=== PATIENT | female | born 1930 | race Caucasian/White ===

== ENCOUNTER 2017-03-23 17:27 | Emergency (ER) | payer MEDICARE, BC ==
[~2017-03-23] VITALS: Ht 170.2 cm; Wt 85.0 kg
[~2017-03-23 17:27] MED LIST: LEVO88TA3 PO
[2017-03-23 17:42] VITALS: Ht 170.2 cm; Wt 85.0 kg
[2017-03-23] MEDS ORDERED: ALBUTEROL 0.5% (NEB) 2.5 MG/0.5 ML AMP INH STA (17:52)
[2017-03-23] MEDS ORDERED: ONDANSETRON 4 MG INJ IV STA (17:52)
[2017-03-23] MEDS ORDERED: SOD CHLORIDE 0.9% 1,000 ML IV STA (17:52)
[2017-03-23] MEDS ORDERED: LEVO75TA5 PO (18:08)
[2017-03-23 18:27] LABS: ADD SCAN DIFF NO
[2017-03-23 18:34] LABS: HEMATOCRIT 45.2 % (37.0-47.0); HEMOGLOBIN 15.3 g/dl (12.0-16.0); MEAN CORPUSCULAR HEMOGLOBIN 32.1 pg (29.0-33.0); MEAN CORPUSCULAR HGB CONC 33.8 g/dl (32.0-37.0); MEAN CORPUSCULAR VOLUME 94.8 fl (82.0-101.0); MEAN PLATELET VOLUME 12.7 fl (7.4-10.4); PLATELET COUNT 165 10^3/UL (140-415); RED BLOOD COUNT 4.77 10^6/ul (4.20-5.40); WHITE BLOOD COUNT 10.7 10^3/ul (4.8-10.8)
--- NOTE | 2017-03-23 18:44 | RADRPT ---
PROCEDURE: CT abdomen and pelvis without contrast. Site of service: emergency room. CLINICAL INDICATION: Periumbilical abdominal pain TECHNIQUE: CT scan of the abdomen and pelvis without contrast was performed on the CT scanner. Th e patient was scanned without intravenous contrast. Oral contrast was not administered. 3-D post p rocessing coronal and sagittal re-formations were obtained from the axial source images. Exam D L P [address] D V O L 20 mgy. This exam is limited due to lack of intravenous contrast. One or more of the following dose reduction techniques were used: Automated exposure control Adjustment of the mA and/or kV according to patient size. Use of iterative reconstruction technique. COMPARISON: None FINDINGS: CT abdomen: Right lower lung field atelectasis is present. The heart size is normal, without pericardial thicke akosua or effusion. The liver is normal in size and density without focal mass or intrahepatic biliary dilatation. The spleen is normal in size and homogeneous in density. The stomach is partially collapsed, but is caitlin ssly unremarkable. The pancreas as visualized is normal. Multiple small gallstones are present within the gallbladder. There is no biliary dilatation. The adrenal glands are symmetric and normal. The kidneys are symmetrically unremarkable as well. N o renal calculus or obstructive uropathy or suspicious, mass lesion is seen. There is a benign, left renal cyst. The aorta is of normal caliber. There is no retroperitoneal lymphadenopathy. The evette hepatis fili on is clear. The bowel and mesentery, as visualized, are equally unremarkable. CT pelvis: The small bowel loops situated within the pelvis are unremarkable. The appendix is normal. The sig moid colon and rectum are all unremarkable. No mass, lymphadenopathy, or free fluid is seen. No ac gigi inflammation is seen. The uterus has been resected. The pelvic sidewalls and inguinal regions are clear. Severe degenerative disk disease is present. No osteolytic or osteoblastic lesion is detected. IMPRESSION: Right lower lobe atelectasis, cholelithiasis, status post hysterectomy, left renal cyst, and severe degenerative disk disease. No acute perforation, bowel obstruction, or acute inflammation. RPTAT: QQ .Gaby Westbrook MD, MD Date Time Electronically viewed and signed by .Gaby Westbrook MD, on 03/23/2017 18:44 .F/
--- NOTE | 2017-03-23 18:45 | ERA ---
ER Documentation Chief Complaint Date/Time DATE: 03/23/17 TIME: 18:44 Chief Complaint Dizzy, N/V HPI 86-year-old woman brought in by EMS from home for complaints of dizziness, 2-3 episodes of clear nonbloody nonbilious emesis beginning this afternoon. Patient states she has been suffering from a cold for the last 2-3 days and has had intermittent cough. She denies fevers or chills, no diarrhea, no blood per rectum or melena. Patient denies chest pain and denies calf or leg swelling. ROS All systems reviewed and are negative except as per history of present illness. Medications Home Meds Active Scripts Albuterol Sulfate* (Proair HFA*) 8.5 Gm Hfa.aer.ad, 2 PUFF INH Q6H Y for COUGH, #1 INHALER Prov:NICCI LARA MD 03/23/17 Ondansetron Hcl* (Zofran*) 4 Mg Tablet, 4 MG PO Q8H Y for NAUSEA AND/OR VOMITING , #16 TAB Prov:NICCI LARA MD 03/23/17 Reported Medications Levothyroxine Sodium* (Levothyroxine Sodium*) 75 Mcg Tablet, 75 MCG PO BEFORE BREAKFAST, #30 TAB 03/23/17 Discontinued Reported Medications Levothyroxine Sodium* (Levothyroxine Sodium*) 88 Mcg Tablet, 88 MCG PO DAILY, TAB 01/04/15 Allergies Allergies: Coded Allergies: prednisone (Verified Allergy, Unknown, 03/23/17) Uncoded Allergies: FLU VACCINE (Allergy, Unknown, 01/04/15) TAPE (Allergy, Unknown, 01/04/15) PMhx/Soc Bladder carcinoma, hypothyroidism, history of stroke, hypertension History of Surgery: Yes (Eye surgery 10/2014) Anesthesia Reaction: No Hx Neurological Disorder: Yes (CVA) Hx Respiratory Disorders: No Hx Cardiac Disorders: No Hx Psychiatric Problems: No Hx Miscellaneous Medical Probl: Yes (hypothyroid) Hx Alcohol Use: Yes Hx Substance Use: No Hx Tobacco Use: No Smoking Status: Never smoker FmHx Family History: No diabetes Physical Exam Vitals Vital Signs Date Time Temp Pulse Resp B/P Pulse Ox O2 Delivery O2 Flow Rate FiO2 03/23/17 23:05 98.6 60 19 133/79 99 Room Air 03/23/17 20:46 97.8 60 19 142/78 95 Room Air 03/23/17 18:04 55 19 95 21 03/23/17 17:42 97.8 64 18 146/84 92 03/23/17 17:42 60 19 146/84 93 Room Air Physical Exam GENERAL: Elderly, chronically debilitated woman, appears dehydrated, nontoxic in appearance HEENT: Dry mucous membranes, pink conjunctiva, no cervical spine tenderness or step-off deformities, no goiter, no jaundice or icterus, extraocular movements intact without pain. No submandibular induration, and no pharyngeal erythema NEURO: Alert and oriented 3, cranial nerves II through XII intact bilaterally, pupils equal round reactive to light, no focal deficits or facial asymmetry, sensation intact distally Strength 5/5 in upper and lower extremities bilaterally CARDIAC: Regular rate and rhythm, no murmurs rubs or gallops LUNGS: Clear bilaterally no wheezing crackles or stridor ABDOMEN: Soft nontender, no guarding, no rigidity, no rebound, no psoas sign no obturator sign. SKIN: Warm and dry to touch, no abrasions, contusions, or hematomas, no lacerations, no ecchymosis, no target lesions, and without ulcers EXTREMITIES: No clubbing cyanosis or edema, calves are bilaterally symmetrical, no Homans sign, no popliteal cord sign. Distal pulses equal and bilateral PSYCH: Normal affect without agitation or irritability Result Diagram: 03/23/17175403/23/17 175 Results 24 hrs Laboratory Tests Test 03/23/17 17:55 03/23/17 22:16 White Blood Count 10.710^3/ul Red Blood Count 4.7710^6/ul Hemoglobin 15.3g/dl Hematocrit 45.2% Mean Corpuscular Volume 94.8fl Mean Corpuscular Hemoglobin 32.1pg Mean Corpuscular Hemoglobin Concent 33.8g/dl Red Cell Distribution Width 13.0% Platelet Count 88483^3/UL Mean Platelet Volume 12.7fl Neutrophils % 52.0% Lymphocytes % 43.0% Monocytes % 5.0% Neutrophils # 5.610^3/ul Lymphocytes # 4.610^3/ul Monocytes # 0.510^3/ul Sodium Level 142mmol/L Potassium Level 3.7mmol/L Chloride Level 105mmol/L Carbon Dioxide Level 25mmol/L Anion Gap 16 Blood Urea Nitrogen 16mg/dl Creatinine 0.78mg/dl Glucose Level 127mg/dl Calcium Level 8.7mg/dl Total Bilirubin 0.5mg/dl Direct Bilirubin 0.00mg/dl Indirect Bilirubin 0.5mg/dl Aspartate Amino Transf (AST/SGOT) 18IU/L Alanine Aminotransferase (ALT/SGPT) 26IU/L Alkaline Phosphatase 107IU/L Troponin I < 0.012ng/ml Total Protein 6.7g/dl Albumin 3.7g/dl Globulin 3.00g/dl Albumin/Globulin Ratio 1.23 Lipase 94U/L Bedside Urine pH (LAB) 5.5 Bedside Urine Protein (LAB) Negative Bedside Urine Glucose (UA) Negative Bedside Urine Ketones (LAB) 1+ Bedside Urine Blood Trace-intact Bedside Urine Nitrite (LAB) Negative Bedside Urine Leukocyte Esterase (L Negative Current Medications Medications (Trade) Dose Ordered Sig/Eulogio Route PRN Reason Start Time Stop Time Status Last Admin Dose Admin Albuterol 5 mg 5 mg ONCE STAT INH 03/23/17 17:52 03/23/17 17:53 DC 03/23/17 18:03 Sodium Chloride (NS) 1,000 ml @ 2,000 mls/hr Q30M STAT IV 03/23/17 17:52 03/23/17 18:21 DC 03/23/17 18:04 Ondansetron HCl (Zofran Inj) 4 mg ONCE STAT IV 03/23/17 17:52 03/23/17 17:53 DC 03/23/17 18:04 Procedures/MDM IV line was established 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 Patient was afebrile. EKG performed, read by me revealed a normal sinus rhythm at 89 bpm, normal axis , narrow QRS complex, no concerning ST elevations or depressions noted. Chest X-ray 1V Interpreted by me: Soft Tissue: No acute abnormalities Bones: No acute abnormalities Mediastinum/Cardiac Silhouette/Lungs: No acute abnormalities CT scan of the abdomen and pelvis was performed no acute inflammatory infectious pathology was noted. Please refer to radiologist dictation for full report. CT scan of the brain was performed that was negative for bleed mass or shift. CBC was unremarkable, electrolytes were normal, liver function tests are normal , troponin was negative, urine analysis has also been ordered results are pending I will follow-up. For dehydration I treated the patient here with 2 L normal saline intravenously , she also received albuterol 5 mg via nebulizer, she also received Zofran 4 mg IV for nausea although she had no episodes of vomiting while here. CT scan of the brain was performed is negative for bleed mass or shift. Differential diagnoses considered, included but not limited to acute coronary syndrome, pulmonary embolism, aortic dissection, abdominal aortic aneurysm, sepsis, stroke, meningitis, encephalitis, pneumonia, appendicitis, cholecystitis , bowel obstruction, pyelonephritis, nephrolithiasis, cystitis, as well as metabolic, hematologic, and electrolyte abnormalities. As well as abscess, cellulitis, fractures, and dislocations. Patient feels much better at this time, and vital signs are normal, symptoms have improved. I did give strict instructions to return to the ED if symptoms continue or worsen, patient will otherwise follow-up with primary care physician. Patient understood instructions and agreed to plan. Departure Diagnosis: Primary Impression: Vomiting Qualified Code: R11.2 - Non-intractable vomiting with nausea, unspecified vomiting type Additional Impressions: Dehydration Bronchitis Condition: Good NICCI LARA MD March 23, 2017 18:45
[2017-03-23 18:51] LABS: ALBUMIN 3.7 g/dl (3.3-4.9); CHLORIDE 105 mmol/L (97-110)
[2017-03-23 18:52] LABS: POTASSIUM 3.7 mmol/L (3.5-5.1); SODIUM 142 mmol/L (135-144)
--- NOTE | 2017-03-23 18:53 | RADRPT ---
PROCEDURE: XR Chest. CLINICAL INDICATION: Chest pain TECHNIQUE: AP view of the chest was performed. COMPARISON: April 01, 2013 FINDINGS: The cardiomediastinal silhouette is within normal limits. The lungs are clear. No signs of pleural f luid or pneumothorax are seen. The osseous structures and soft tissues are unremarkable. IMPRESSION: No evidence for active cardiopulmonary disease. RPTAT: QQ .Gaby Westbrook MD, MD Date Time Electronically viewed and signed by .Gaby Westbrook MD, on 03/23/2017 18:53 .F/
[2017-03-23 18:54] LABS: ALBUMIN/GLOBULIN RATIO 1.23; ANION GAP 16 (8-16); ASPARTATE AMINO TRANSFERASE 18 IU/L (15-46); BILIRUBIN,INDIRECT 0.5 mg/dl (0-1.1); BILIRUBIN,TOTAL 0.5 mg/dl (0.2-1.3); CARBON DIOXIDE 25 mmol/L (21-31); CREATININE 0.78 mg/dl (0.44-1.00); TOTAL PROTEIN 6.7 g/dl (6.1-8.1)
[2017-03-23 18:55] LABS: ALANINE AMINOTRANSFERASE 26 IU/L (13-69); ALKALINE PHOSPHATASE 107 IU/L (42-121); BLOOD UREA NITROGEN 16 mg/dl (7-20); CALCIUM 8.7 mg/dl (8.4-10.2); GLUCOSE 127 mg/dl (70-220)
[2017-03-23 19:08] LABS: LYMPHOCYTES # 4.6 10^3/ul (0.8-2.9); MONOCYTE # 0.5 10^3/ul (0.3-0.9); NEUTROPHIL # 5.6 10^3/ul (1.6-7.5)
[2017-03-23 19:11] LABS: TROPONIN-I < 0.012 ng/ml (0.00-0.12)
[2017-03-23] MEDS ORDERED: ONDA4TAB8 PO (20:07)
[2017-03-23] MEDS ORDERED: ALBU8.5H3 INH (20:10)
--- NOTE | 2017-03-23 21:08 | RADRPT ---
PROCEDURE: CT Brain without. CLINICAL INDICATION: Pain. TECHNIQUE: A CT of the brain was performed on multidetector high-resolution CT scanner utilizing a xial sections from the skull base through the vertex without contrast. The scan was reviewed in sof t tissue brain and high frequency resolution bone algorithm windows. Images were reviewed on a high -resolution PACS workstation. One or more the following does reduction techniques were utilized: Aut omated exposure control, adjustment of the mA/ or kV according to patient's size, or use of iterativ e reconstruction technique. The exam CTDI = 45 mGy and the DLP = 720.23 mGy-cm. COMPARISON: None available. FINDINGS: The ventricles and sulci are mildly prominent indicative of volume loss. There is no intracranial he morrhage, mass effect or midline shift. No abnormal intra-axial or extra-axial fluid collections ar e seen. The sanderson/white matter differentiation is preserved. There are mild scattered foci of hypoattenuation in the white matter, which are nonspecific in etiol ogy but likely reflect chronic small vessel ischemic changes. There are mild intracranial vascular calcifications consistent with atherosclerosis. The visualized paranasal sinuses are essentially emi ar. IMPRESSION: 1. No acute intracranial hemorrhage, transcortical infarction or mass effect. 2. Mild intracranial atherosclerosis and chronic small vessel ischemic changes. 3. Mild generalized cerebral volume loss. RPTAT: HFN .Arleth Hale MD, MD Date Time Electronically viewed and signed by .Arleth Hale MD, MD on 03/23/2017 21:08 .N/
[2017-03-23 22:15] LABS: URINE BLOOD (Dip) POC Trace-intact (NEGATIVE)
[2017-03-23 23:05] VITALS: BP 133/79; PULSE 60; RESP 19; TEMP 98.6
== END 2017-03-23 23:06 | disposition home or self-care (01) ==
LOC: E/R 17:27
DX: R11.2 Nausea with vomiting, unspecified (principal); R40.2252 Coma scale, best verbal response, oriented, at arrival to emergency department; E86.0 Dehydration; J40 Bronchitis, not specified as acute or chronic; I10 Essential (primary) hypertension; E03.9 Hypothyroidism, unspecified; R05 Cough; R11.10 Vomiting, unspecified; R40.2142 Coma scale, eyes open, spontaneous, at arrival to emergency department; R40.2362 Coma scale, best motor response, obeys commands, at arrival to emergency department; Z85.51 Personal history of malignant neoplasm of bladder
CPT/HCPCS: 36415; 70450; 71010; 74176; 80053; 83690; 84484; 85025; 93005; 94664; 96374; 99285; J2405; J7030; 81003

== ENCOUNTER 2019-01-03 12:42 | Inpatient (IN) | payer MEDICARE, BC ==
[2019-01-02 23:25] VITALS: PULSE 46
[~2019-01-03] VITALS: Ht 165.1 cm; Wt 63.0 kg
[~2019-01-03 12:42] MED LIST changes: +ALBU8.5H8 INH; +LEVO75TA5 PO; -LEVO88TA3 PO; +ONDA4TAB8 PO
--- NOTE | 2019-01-03 13:56 | ERD ---
ER Documentation Chief Complaint Chief Complaint bib ra from home for syncope episode, no fall, no head impact HPI 88-year-old female presents by paramedics after a fall. Patient is a poor historian providing limited insight. I have also spoken her . Patient was in her usual state of health until just prior to arrival which time she passed out. She had no specific symptoms prior to passing out including no chest pain or palpitations, no headache focal weakness or seizure activity. According to the paramedics and the , she passed out, hit the back of her head and hurt her left shoulder as well as questionable her hip. 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 Pre-hospital vital signs were reviewed. Pre-hospital diagnostic tests were reviewed. Upon arrival, patient is unable to provide any further history. Patient describes no details or any symptoms prior to the fall and describes no specific traumatic complaints at this time. ROS All systems reviewed and are negative except as per history of present illness. Medications Home Meds Active Scripts Albuterol Sulfate* (Proair HFA*) 8.5 Gm Hfa.aer.ad, 2 PUFF INH Q6H PRN for COUGH, #1 INHALER Prov:NICCI LARA MD 03/23/17 Ondansetron Hcl* (Zofran*) 4 Mg Tablet, 4 MG PO Q8H PRN for NAUSEA AND/OR VOMITING, #16 TAB Prov:NICCI LARA MD 03/23/17 Reported Medications Levothyroxine Sodium* (Levothyroxine Sodium*) 75 Mcg Tablet, 75 MCG PO BEFORE BREAKFAST, #30 TAB 03/23/17 Allergies Allergies: Coded Allergies: prednisone (Verified Allergy, Unknown, 03/23/17) Uncoded Allergies: FLU VACCINE (Allergy, Unknown, 01/04/15) TAPE (Allergy, Unknown, 01/04/15) PMhx/Soc History of Surgery: Yes (Eye surgery 10/2014) Anesthesia Reaction: No Hx Neurological Disorder: Yes (CVA) Hx Respiratory Disorders: No Hx Cardiac Disorders: No Hx Psychiatric Problems: No Hx Miscellaneous Medical Probl: Yes (hypothyroid) Hx Alcohol Use: Yes Hx Substance Use: No Hx Tobacco Use: No Smoking Status: Never smoker FmHx Lives with frail elderly Physical Exam Vitals Vital Signs Date Temp Pulse Resp B/P (MAP) Pulse Ox O2 O2 Flow FiO2 Time Delivery Rate 01/03/19 98.1 71 19 147/65 98 Room Air 12:45 (92) 01/03/19 98.1 57 19 147/65 98 12:45 (92) Physical Exam General: Frail, elderly female. HEENT: Scalp atraumatic with no laceration or evidence of skull fracture; no signs of basilar skull fracture. Face symmetric, stable and atraumatic Neck: Full range of motion without discomfort or neurologic symptoms, no midline cervical spine tenderness, step-off, or evidence of significant trauma CV: Regular rate, rhythm, no murmurs appreciated Lungs: Clear to auscultation bilaterally with no chest wall trauma appreciated, chest wall stable with no crepitus Abdomen: Soft, atraumatic and non-tender in all 4 quadrants Extremities: Atraumatic with no bony tenderness or deformity in all 4 extremities, full range of motion throughout all joints; pelvis stable to both AP and lateral compression Back: No thoracic or lumbar midline tenderness, no step-off or evidence of significant trauma Neurologic: Awake, alert and oriented, pupils equal, round and reactive to light, face symmetric, tongue midline, moving all extremities with equal and normal strength, sensory exam grossly non-focal Skin: No specific laceration or bruising noted Result Diagram: 01/03/19 1340 01/03/19 1340 Results 24 hrs Laboratory Tests Test 01/03/19 12:56 01/03/19 13:23 01/03/19 13:40 Urine Color YELLOW Urine Clarity CLEAR Urine pH 6.0 Urine Specific [place] 1.016 Urine Ketones NEGATIVE mg/dL Urine Nitrite NEGATIVE mg/dL Urine Bilirubin NEGATIVE mg/dL Urine Urobilinogen NEGATIVE mg/dL Urine Leukocyte Esterase NEGATIVE Jeannie/ul Urine Hemoglobin NEGATIVE mg/dL Urine Glucose NEGATIVE mg/dL Urine Total Protein NEGATIVE mg/dl Bedside Glucose 113 mg/dL White Blood Count 6.1 10^3/ul Red Blood Count 4.18 10^6/ul Hemoglobin 13.4 g/dl Hematocrit 40.8 % Mean Corpuscular Volume 97.6 fl Mean Corpuscular Hemoglobin 32.1 pg Mean Corpuscular 32.8 g/dl Hemoglobin Concent Red Cell Distribution Width 13.0 % Platelet Count 130 10^3/UL Mean Platelet Volume 11.8 fl Immature Granulocytes % 0.300 % Neutrophils % 77.0 % Lymphocytes % 16.6 % Monocytes % 4.8 % Eosinophils % 1.0 % Basophils % 0.3 % Nucleated Red Blood Cells % 0.0 /100WBC Immature Granulocytes # 0.020 10^3/ul Neutrophils # 4.7 10^3/ul Lymphocytes # 1.0 10^3/ul Monocytes # 0.3 10^3/ul Eosinophils # 0.1 10^3/ul Basophils # 0.0 10^3/ul Nucleated Red Blood Cells # 0.0 10^3/ul Prothrombin Time 12.6 Sec Prothrombin Time Ratio 1.0 INR International 0.93 Normalized Ratio Activated Partial Thromboplast 20.0 Sec Time Sodium Level 142 mmol/L Potassium Level 3.8 mmol/L Chloride Level 106 mmol/L Carbon Dioxide Level 31 mmol/L Anion Gap 5 Blood Urea Nitrogen 19 mg/dl Creatinine 0.78 mg/dl Est Glomerular Filtrat mL/min Rate mL/min Glucose Level 117 mg/dl Calcium Level 9.2 mg/dl Troponin I Pending Procedures/MDM Patient was taken to a room, seen and evaluated. Comfort measures were initiated. Diagnostic tests were ordered and reviewed. 3 LEAD RHYTHM STRIP: Normal sinus rhythm without ectopy EK lead EKG reviewed by myself: Normal Sinus Rhythm Normal Vermilion and intervals Nonspecific ST and T wave changes without ST elevation Impression: Nonspecific EKG RADIOLOGY: Reviewed with the radiologist CONSULTATION: Hospitalist was notified for admission REEVALUATION: Patient remains him dynamically stable and comfortable having received pain medication from the paramedics MEDICAL DECISION MAKING: Patient presents after a fall. From a trauma standpoint, patient has been evaluated for significant injury. Initial x-rays demonstrate no signs of significant fracture and patient has no clinical evidence of significant thoracic, abdominal, neurologic or orthopedic trauma From a medical standpoint, the fall seems to be related to a geriatric syndrome with multiple causes. I have reviewed medications and evaluated the patient for infection, electrolyte concerns, ischemia and other acute medical concerns. Patient has no definitive cause for her syncope, but is clearly frail and as per my conversations with the has had multiple falls previously. Patient will require further observation for cardiogenic concerns regarding her syncope From a social standpoint, the patient has been evaluated for safety. Patient is unable to ambulate and unable to care for herself and with her elderly does not have a safe discharge. Patient seems to be requiring inpatient care for supportive measures. Departure Diagnosis: Primary Impression: Syncope Condition: JANESSA Martin Jan 03, 2019 13:56
--- NOTE | 2019-01-03 14:47 | HP ---
Date/Time of Note Date/Time of Note DATE: 01/03/19 TIME: 14:47 Assessment/Plan VTE Prophylaxis Pharmacological prophylaxis: LMWH Lines/Catheters IV C[facility]ter Type (from [facility] Saline Lock Urinary Cath still in place: No Assessment/Plan Hospital Course 88-year-old female with comorbidities including hypothyroidism, osteoporosis, a nd remote history of ovarian and bladder cancer who had a syncopal episode at home and was brought to the emergency room. The patient will be admitted to inpatient setting for further treatment and evaluation. 1. Syncope. -Etiology unclear. -Brain CT negative. -Obtain carotid Dopplers. -Obtain orthostatic vital signs. -Obtain neurology consult. -Obtain serial troponins to evaluate for any underlying ACS. Obtain 2D echocardiogram with bubble study. -Start as needed meclizine. -Physical therapy evaluation. -Start aspirin for any underlying acute ischemic event. 2. Hypothyroidism. -Resume Synthroid. -Obtain thyroid panel. 3. Bradycardia with underlying frequent PACs. -Possible underlying atrial fibrillation. -Obtain cardiology evaluation. -Avoid AV elizabeth blocking agents. Plan: The patient will be admitted to inpatient telemetry floor. The patient will be started on a regular diet. The patient will be started on DVT prophylaxis. The patient will remain a full code. Activities will be with assist. The rest of the patient's management will be based on the clinical course, inputs from consultants, and the results of diagnostic studies. Based on the patient's clinical presentation, she most probably requires at least 2 midnights' stay for further management and evaluation of her clinical presentation. The patient was seen in collaboration with Dr. Figueroa. Result Diagram: 01/03/19 1340 01/03/19 1340 Results 24hrs Laboratory Tests Test 01/03/19 12:56 01/03/19 13:23 01/03/19 13:40 Urine Color YELLOW Urine Clarity CLEAR Urine pH 6.0 Urine Specific [place] 1.016 Urine Ketones NEGATIVE Urine Nitrite NEGATIVE Urine Bilirubin NEGATIVE Urine Urobilinogen NEGATIVE Urine Leukocyte Esterase NEGATIVE Urine Hemoglobin NEGATIVE Urine Glucose NEGATIVE Urine Total Protein NEGATIVE Bedside Glucose 113 White Blood Count 6.1 # Red Blood Count 4.18 L Hemoglobin 13.4 Hematocrit 40.8 Mean Corpuscular Volume 97.6 Mean Corpuscular Hemoglobin 32.1 Mean Corpuscular Hemoglobin Concent 32.8 Red Cell Distribution Width 13.0 Platelet Count 130 #L Mean Platelet Volume 11.8 H Immature Granulocytes % 0.300 Neutrophils % 77.0 Lymphocytes % 16.6 Monocytes % 4.8 Eosinophils % 1.0 Basophils % 0.3 Nucleated Red Blood Cells % 0.0 Immature Granulocytes # 0.020 Neutrophils # 4.7 Lymphocytes # 1.0 Monocytes # 0.3 Eosinophils # 0.1 Basophils # 0.0 Nucleated Red Blood Cells # 0.0 Prothrombin Time 12.6 Prothrombin Time Ratio 1.0 INR International Normalized Ratio 0.93 Activated Partial Thromboplast Time 20.0 L Sodium Level 142 Potassium Level 3.8 Chloride Level 106 Carbon Dioxide Level 31 Anion Gap 5 Blood Urea Nitrogen 19 Creatinine 0.78 Est Glomerular Filtrat Rate mL/min Glucose Level 117 Calcium Level 9.2 Troponin I < 0.012 HPI/ROS Admit Date/Time Admit Date/Time Hx of Present Illness Reason for admission: Syncope Consultants 1. Zhanna Parks MD, Neurology. 2. Gabriele Avendano MD, Cardiology. This is an 88-year-old female patient with past medical history of hypothyroidism, and remote history of ovarian and bladder cancer status post surgical resection. The patient verbalized that she was sitting in a chair and reading a magazine. Suddenly she felt dizziness and the entire room spinning. Therefore, she tried to get up and walk to the bed. Meanwhile, the entire room was spinning and she fell on the floor with impact to the left shoulder and back of the head. The patient also verbalized that she felt nauseous and had vomiting. The patient denied any urinary or stool incontinence. The patient screamed for help. However, the patient's spouse who is crippled could not hear her. Therefore, she crawled to the door and screamed through the keyhole. The patient's heard it and he called the neighbors to come and help her. Paramedics were called and the patient was brought to the emergency room. The patient verbalized that after she fell down, she had significant left shoulder pain and headache. The patient was also complaining of severe body aches. She was also complaining of palpitations. She was also complaining of chest pain. In the emergency room, the patient underwent a brain CT scan that was negative f or any acute findings. The patient also underwent a left shoulder x-ray that was negative for any fractures. Patient's the pelvic x-ray was also negative for any acute fractures. The patient's troponins were negative. The patient's 12-lead EKG was showing significant sinus arrhythmia. ROS Constitutional: nausea Eyes: no complaints ENT: no complaints Respiratory: no complaints Cardiovascular: chest pain, palpitations Gastrointestinal: nausea, vomiting Genitourinary: no complaints Musculoskeletal: back pain, bone/joint pain (Left shoulder) Skin: no complaints Neurologic: syncope, other (vertigo) Endocrine: no complaints Lymphatic: no complaints Psychological: no complaints Immunologic: no complaints PMH/Family/Social Past Medical History 1. Hypothyroidism. 2. Ovarian cancer. 3. Bladder cancer. Coded Allergies: prednisone (Verified Allergy, Unknown, 01/03/19) Uncoded Allergies: FLU VACCINE (Allergy, Unknown, 01/04/15) TAPE (Allergy, Unknown, 01/04/15) Past Surgical History 1. Surgery for ovarian cancer. 2. Surgery for bladder cancer. Social History The patient lives at home with her spouse. Smoking Status: Never smoker Exam/Review of Systems Vital Signs Vitals Vital Signs Date Temp Pulse Resp B/P (MAP) Pulse Ox O2 O2 Flow FiO2 Time Delivery Rate 01/03/19 98.1 71 19 147/65 98 Room Air 12:45 (92) Exam Exam General: Adequately build 88 year-old female lying in bed in no apparent distress. HEENT: Normocephalic, atraumatic. Eyes: Anicteric sclerae, conjunctivae clear. ENT: Nasal septum midline, oral mucosa is dry. Neck supple. Respiratory: Bilaterally diminished breath sounds. No use of accessory muscles of respiration. No adventitious breath sounds. Cardiovascular: S1, S2 heard. Irregular. Abdomen: Soft, nontender, and nondistended. Bowel sounds positive in all 4 quadrants. Genitourinary: Deferred. Extremities: No cyanosis, no clubbing. B/L LE 2+ pitting edema. Peripheral pulses palpable. Neurologic: The patient is awake, alert, and oriented. Hard of hearing. LUE weaker than the right side. Additional Comments Brain CT IMPRESSION: 1. No evidence of acute intracranial pathology. 2. Age appropriate diffuse cerebral volume loss. 3. Periventricular white matter hypodensities are nonspecific but likely reflect chronic microvascular ischemic change. 12 Lead EKG NENA EDWARDS NP Jan 03, 2019 14:47
[2019-01-03] MEDS ORDERED: ONDANSETRON 4 MG INJ IV PRN (15:00)
[2019-01-03] MEDS ORDERED: ACETAMINOPHEN 325 MG TAB PO PRN (15:00)
[2019-01-03] MEDS ORDERED: NACL 0.9% 3 ML SYG IV SCH (15:00)
[2019-01-03] MEDS ORDERED: MECLIZINE 12.5 MG TAB PO PRN (15:00)
[2019-01-03 17:30] VITALS: PULSE 68
[2019-01-03 17:32] VITALS: BP 154/69; PULSE 58; RESP 18
[2019-01-03 20:00] VITALS: PULSE 65
[2019-01-03 20:22] VITALS: BP 118/54; PULSE 54; RESP 18
[2019-01-04] VITALS (12 sets, daily range): BP systolic 95–135; BP diastolic 51–66; PULSE 54–78; RESP 17–19
[2019-01-04] MEDS ORDERED: traZODone 50 MG TAB PO ONE
[2019-01-04] MEDS: LEVOTHYROXINE 75 MCG TAB PO SCH (07:16)
[2019-01-04] MEDS: ASPIRIN (EC) 81 MG TAB PO SCH (10:02)
[2019-01-04] MEDS: ENOXAPARIN 30 MG/0.3 ML SYG SC SCH (10:07)
--- NOTE | 2019-01-04 12:45 | CONS ---
Assessment/Plan Assessment/Plan Hospital Course (Demo Recall) ?Syncope: Unclear as pt is a poor historian. There is a question of vertigo but also symptoms may be orthostatic related by history. Echo shows normal EF and valved. Tele with isolated PAC/PVCs and at times sinus bradycardia which do not explain the episode PAC/PVCs: isolated and no symptoms. Normal EF. No BB/CCB with baseline mild bradycardia at times Hypothyroidism -neuro f/u -orthostatic precautions -monitor on tele one more day -terminal supervisor event monitor as outpt is an option if trule recurrent episodes Consultation Date/Type/Reason Admit Date/Time Date of Consultation: Jan 04, 2019 Type of Consult Cardiology Reason for Consultation Syncope Requesting Provider: NENA EDWARDS NP Date/Time of Note DATE: 01/04/19 TIME: 12:45 Hx of Present Illness 88 yo F with a h/o ?dementia, hypothyroidism, who presented with possible syncope. The pt is a very poor historian and notes that she was sitting down reading a magazine when she started to notice the print was blurry. She tried to get up and felt dizzy but she is not sure if it was vertigo like or light headedness. She became unsteady and "fell". At one point she said she lost consciousness and at other times she said she lost her balance. This has happened in the past but she is not able to give me more details. Tele shows PACs and PVCs. No pauses, heart block, NSVT. Echo shows normal EF and valves. per HPI but limited Past Medical History per HPI Home Meds Reported Medications Levothyroxine Sodium* (Levothyroxine Sodium*) 75 Mcg Tablet, 75 MCG PO BEFORE BREAKFAST, #30 TAB 03/23/17 Discontinued Scripts Albuterol Sulfate* (Proair HFA*) 8.5 Gm Hfa.aer.ad, 2 PUFF INH Q6H PRN for COUGH, #1 INHALER Prov:NICCI LARA MD 03/23/17 Ondansetron Hcl* (Zofran*) 4 Mg Tablet, 4 MG PO Q8H PRN for NAUSEA AND/OR VOMITING, #16 TAB Prov:NICCI LARA MD 03/23/17 Medications Current Medications IV Flush (NS 3 ml) 3 ml PER PROTOCOL IV ; Start 01/03/19 at 15:00 Ondansetron HCl (Zofran Inj) 4 mg Q6H PRN IV NAUSEA/VOMITING; Start 01/03/19 at 15:00 Acetaminophen (Tylenol Tab) 650 mg Q6H PRN PO .PAIN 1-3 OR TEMP; Start 01/03/19 at 15:00 Acetaminophen/ Hydrocodone Bitart ([place] (5/325)) 1 tab Q6H PRN PO .PAIN 4-6; Start 01/03/19 at 15:00 Enoxaparin Sodium (Lovenox) 30 mg DAILY SC Last administered on 01/04/19at 10:07; Admin Dose 30 MG; Start 01/04/19 at 09:00 Levothyroxine Sodium (Synthroid) 75 mcg BEFORE BREAKFAST PO Last administered on 01/04/19at 07:16; Admin Dose 75 MCG; Start 01/04/19 at 07:00 Aspirin (Halfprin) 81 mg DAILY PO Last administered on 01/04/19at 10:02; Admin Dose 81 MG; Start 01/04/19 at 09:00 Meclizine HCl (Antivert) 12.5 mg TID PRN PO Vertigo; Start 01/03/19 at 15:00 Allergies: Coded Allergies: prednisone (Verified Allergy, Unknown, 01/03/19) Uncoded Allergies: FLU VACCINE (Allergy, Unknown, 01/04/15) TAPE (Allergy, Unknown, 01/04/15) Social History Smoking Status: Never smoker Exam/Review of Systems Exam Vitals Vital Signs Date Temp Pulse Resp B/P (MAP) Pulse Ox O2 O2 Flow FiO2 Time Delivery Rate 01/04/19 98.7 64 18 100/53 95 11:41 (69) 01/03/19 Room Air 16:06 Intake and Output 01/03/19 01/03/19 01/04/19 1515:00 23:00 07:00 OutputOutput Total 1100 ml BalanceBalance -1100 ml Constitutional: alert, oriented Psych: no complaints, nl mood/affect Head: normocephalic, atraumatic Neck: No jvd Respiratory: clear to auscultation; No crackles/rales Cardiovascular: regular rate and rhythm, systolic murmur (2/6 BRITT); No edema Gastrointestinal: soft, non-tender; No distended Musculoskeletal: nl extremities to inspection Neurological: nl mental status, nl speech Results Result Diagram: 01/04/19 0520 01/04/19 0520 Results 24hrs Laboratory Tests Test 01/03/19 12:56 01/03/19 13:23 01/03/19 13:40 01/03/19 18:38 Urine Color YELLOW Urine Clarity CLEAR Urine pH 6.0 Urine Specific 1.016 [place] Urine Ketones NEGATIVE Urine Nitrite NEGATIVE Urine Bilirubin NEGATIVE Urine Urobilinogen NEGATIVE Urine Leukocyte NEGATIVE Esterase Urine Hemoglobin NEGATIVE Urine Glucose NEGATIVE Urine Total Protein NEGATIVE Bedside Glucose 113 White Blood Count 6.1 # Red Blood Count 4.18 L Hemoglobin 13.4 Hematocrit 40.8 Mean Corpuscular 97.6 Volume Mean Corpuscular 32.1 Hemoglobin Mean Corpuscular 32.8 Hemoglobin Concent Red Cell 13.0 Distribution Width Platelet Count 130 #L Mean Platelet Volume 11.8 H Immature 0.300 Granulocytes % Neutrophils % 77.0 Lymphocytes % 16.6 Monocytes % 4.8 Eosinophils % 1.0 Basophils % 0.3 Nucleated Red Blood 0.0 Cells % Immature 0.020 Granulocytes # Neutrophils # 4.7 Lymphocytes # 1.0 Monocytes # 0.3 Eosinophils # 0.1 Basophils # 0.0 Nucleated Red Blood 0.0 Cells # Prothrombin Time 12.6 Prothrombin Time 1.0 Ratio INR International 0.93 Normalized Ratio Activated 20.0 L Partial Thromboplast Time Sodium Level 142 Potassium Level 3.8 Chloride Level 106 Carbon Dioxide Level 31 Anion Gap 5 Blood Urea Nitrogen 19 Creatinine 0.78 Est Glomerular Filtrat Rate mL/min Glucose Level 117 Calcium Level 9.2 Troponin I < 0.012 0.029 Thyroid Stimulating 3.900 Hormone (TSH) Free Thyroxine 1.30 Urine Opiates Screen Negative Urine Barbiturates Negative Urine Amphetamines Negative Screen Urine Negative Benzodiazepines Screen Urine Cocaine Screen Negative Urine Cannabinoids Negative Creatine Kinase 82 Creatine Kinase 1.3 Index Creatinine Kinase MB 1.06 (Mass) Test 01/04/19 00:24 01/04/19 05:20 Creatine Kinase 101 99 Creatine Kinase 1.1 1.2 Index Creatinine Kinase MB 1.11 1.16 (Mass) Troponin I 0.045 0.037 White Blood Count 7.5 # Red Blood Count 4.02 L Hemoglobin 13.1 Hematocrit 39.6 Mean Corpuscular 98.5 Volume Mean Corpuscular 32.6 Hemoglobin Mean Corpuscular 33.1 Hemoglobin Concent Red Cell 12.8 Distribution Width Platelet Count 128 L Mean Platelet Volume 12.1 H Immature 0.300 Granulocytes % Neutrophils % 54.2 Lymphocytes % 35.0 Monocytes % 8.4 Eosinophils % 1.6 Basophils % 0.5 Nucleated Red Blood 0.0 Cells % Immature 0.020 Granulocytes # Neutrophils # 4.1 Lymphocytes # 2.6 Monocytes # 0.6 Eosinophils # 0.1 Basophils # 0.0 Nucleated Red Blood 0.0 Cells # Sodium Level 142 Potassium Level 3.9 Chloride Level 106 Carbon Dioxide Level 31 Anion Gap 5 Blood Urea Nitrogen 18 Creatinine 0.78 Est Glomerular Filtrat Rate mL/min Glucose Level 98 Calcium Level 9.0 Phosphorus Level 3.7 Magnesium Level 2.0 B-Type Natriuretic 1540 H Peptide Triglycerides Level 61 Cholesterol Level 166 LDL Cholesterol, 89 Calculated HDL Cholesterol 65 Cholesterol/HDL 2.5 Ratio Medications Medication Current Medications IV Flush (NS 3 ml) 3 ml PER PROTOCOL IV ; Start 01/03/19 at 15:00 Ondansetron HCl (Zofran Inj) 4 mg Q6H PRN IV NAUSEA/VOMITING; Start 01/03/19 at 15:00 Acetaminophen (Tylenol Tab) 650 mg Q6H PRN PO .PAIN 1-3 OR TEMP; Start 01/03/19 at 15:00 Acetaminophen/ Hydrocodone Bitart ([place] (5/325)) 1 tab Q6H PRN PO .PAIN 4-6; Start 01/03/19 at 15:00 Enoxaparin Sodium (Lovenox) 30 mg DAILY SC Last administered on 01/04/19at 10:07; Admin Dose 30 MG; Start 01/04/19 at 09:00 Levothyroxine Sodium (Synthroid) 75 mcg BEFORE BREAKFAST PO Last administered on 01/04/19at 07:16; Admin Dose 75 MCG; Start 01/04/19 at 07:00 Aspirin (Halfprin) 81 mg DAILY PO Last administered on 01/04/19at 10:02; Admin Dose 81 MG; Start 01/04/19 at 09:00 Meclizine HCl (Antivert) 12.5 mg TID PRN PO Vertigo; Start 01/03/19 at 15:00 NELSON CORBIN Jan 04, 2019 12:45
--- NOTE | 2019-01-04 12:51 | RADRPT ---
Echocardiogram Report Patient Name: Guy BOYKIN ID: [id number] : 1930 (88y 2m)Study Date: 01/04/2019 9:27:41 AM Gender: FAccession #: [id number] Tech: Samir Steele [facility] Location: [address] Ref.Physician: NENA EDWARDS Height(Cm): BSA: Weight(Kg): Quality: AdequateAccount #: Procedures: Echocardiographic Report: Transthoracic echocardiogram with complete 2D, M-Mode, and doppler examination. Indications: Syncope w/ Bubble study. Measurements: 2D/M Mode Doppler Measurement Value Normal Range Measurement Value Normal Range LVIDd 2D 4.9 [ 3.8 - 5.2 ] cm AV Peak Wilson 1.5 [ 100.0 - 170.0 ] cm/sec LVIDs 2D 3.2 [ 2.2 - 3.5 ] cm AV Peak PG 10.0 [ 2.0 - 9.0 ] mmHg LVPWd 2D 0.8 [ 0.6 - 0.9 ] cm LVOT Peak Wilson 1.0 [ 70.0 - 110.0 ] cm/sec IVSd 2D 0.9 [ 0.6 - 0.9 ] cm LVOT Peak PG 4.0 [ 2.0 - 6.0 ] mmHg AoR Diam 2D 2.8 [ 2.3 - 3.1 ] cm MV E Peak Wilson 0.8 [ 60.0 - 130.0 ] cm/sec EDV 2D 113.0 [ 46.0 - 106.0 ] ml MV A Peak Wilson 0.7 [ 100.0 - 120.0 ] cm/sec ESV 2D 40.6 [ 14.0 - 42.0 ] ml MV E/A 1.1 [ 0.8 - 1.5 ] ratio EF 2D 64.1 [ 54.0 - 74.0 ] percent MV Decel Time 204 [ 104 - 258 ] msec LA Dimen 2D 4.1 [ 2.7 - 3.8 ] cm Lat E` Wilson 0.1 [ 10.0 - 15.0 ] cm/sec Lateral E/E` 9.6 [ 1.0 - 2.0 ] ratio Med E` Wilson 0.1 cm/sec MV E/A 1.1 [ 0.8 - 1.5 ] ratio TR Peak Wilson 2.3 [ 100.0 - 280.0 ] cm/sec TR Peak PG 22.0 mmHg RVSP 30.0 [ 10.0 - 36.0 ] mmHg Findings: Left Ventricle: Normal left ventricular systolic function. Normal left ventricular cavity size. Normal left ventricular wall thickness. Ejection fraction is visually estimated at 65 %. Tissue Doppler/Mitral Doppler indices are within normal limits. Right Ventricle: Normal right ventricular size. Normal right ventricular systolic function. Left Atrium: There is mild enlargement of left atrium. Right Atrium: The right atrium is normal in size. Atrial Septum: Bubble study was performed with and with out valsalva indicating no evidence of intra atrial shunt. Mitral Valve: Mild mitral leaflet calcification. Mild mitral annular calcification. Trace mitral regurgitation. Aortic Valve: No significant aortic stenosis or insufficiency. Aortic sclerosis without significant stenosis. Tricuspid Valve: Normal appearance of the tricuspid valve. Estimated peak PA systolic pressure 30 mmHg. There is trace to mild tricuspid regurgitation. Pericardium: Normal pericardium with no significant pericardial effusion. Aorta: Normal aortic root. IVC: Normal size with poor respiratory collapse consistent with elevated right atrial pressure. Conclusions: Normal left ventricular systolic function. Normal left ventricular cavity size. Normal left ventricular wall thickness. Ejection fraction is visually estimated at 65 %. Tissue Doppler/Mitral Doppler indices are within normal limits. No significant valvular stenosis or regurgitation seen. Bubble study was performed with and with out valsalva indicating no evidence of intra atrial shunt. Estimated peak PA systolic pressure 30 mmHg. Normal size with poor respiratory collapse consistent with elevated right atrial pressure. Electronically Signed By: Gabriele Avendano 2019-01-04 12:51:24 PST
--- NOTE | 2019-01-04 16:12 | CONS ---
Assessment/Plan Assessment/Plan Hospital Course 88 F c/ reported Hx of stroke, cancers, and other comorbidities...who presents for evaluation of recurrent vertigo..c/b fall w/ ? LOC...for which neurology is consulted.. The clinical picture could be consistent w/ peripheral vertigo.. However, a central vertigo is not yet excluded.. CTH is unrevealing. P: MRI brain w/ and w/o contrast for further characterization Agree w/ asa daily for now Add lipitor for now, pending the above Meclizine prn PT/OT as able Medication reconciliation and other management per primary Will follow Consultation Date/Type/Reason Admit Date/Time Type of Consult Neurology Reason for Consultation vertigo; LOC? Requesting Provider: NENA EDWARDS NP Date/Time of Note DATE: 01/04/19 TIME: 16:12 Hx of Present Illness This is an 88-year-old female patient with past medical history of hypothyroidism, and remote history of ovarian and bladder cancer status post surgical resection. The patient verbalized that she was sitting in a chair and reading a magazine. Suddenly she felt dizziness and the entire room spinning. Therefore, she tried to get up and walk to the bed. Meanwhile, the entire room was spinning and she fell on the floor with impact to the left shoulder and back of the head. The patient also verbalized that she felt nauseous and had vomiting. The patient denied any urinary or stool incontinence. The patient screamed for help. However, the patient's spouse who is crippled could not hear her. Therefore, she crawled to the door and screamed through the keyhole. The patient's heard it and he called the neighbors to come and help her. Paramedics were called and the patient was brought to the emergency room. The patient verbalized that after she fell down, she had significant left shoulder pain and headache. The patient was also complaining of severe body aches. She was also complaining of palpitations. She was also complaining of chest pain. In the emergency room, the patient underwent a brain CT scan that was negative for any acute findings. The patient also underwent a left shoulder x-ray that was negative for any fractures. Patient's the pelvic x-ray was also negative for any acute fractures. The patient's troponins were negative. The patient's 12-lead EKG was showing significant sinus arrhythmia. 12 PT ROS ow neg Exam/Review of Systems Exam Vitals Vital Signs Date Temp Pulse Resp B/P (MAP) Pulse Ox O2 O2 Flow FiO2 Time Delivery Rate 01/04/19 98.4 64 18 100/55 96 15:38 (70) 01/03/19 Room Air 16:06 Intake and Output 01/03/19 01/03/19 01/04/19 1414:59 22:59 06:59 OutputOutput Total 1100 ml BalanceBalance -1100 ml Results Result Diagram: 01/04/19 0520 01/04/19 0520 Results 24hrs Laboratory Tests Test 01/03/19 18:38 01/04/19 00:24 01/04/19 05:20 Creatine Kinase 82 101 99 Creatine Kinase Index 1.3 1.1 1.2 Creatinine Kinase MB (Mass) 1.06 1.11 1.16 Troponin I 0.029 0.045 0.037 White Blood Count 7.5 # Red Blood Count 4.02 L Hemoglobin 13.1 Hematocrit 39.6 Mean Corpuscular Volume 98.5 Mean Corpuscular Hemoglobin 32.6 Mean Corpuscular Hemoglobin Concent 33.1 Red Cell Distribution Width 12.8 Platelet Count 128 L Mean Platelet Volume 12.1 H Immature Granulocytes % 0.300 Neutrophils % 54.2 Lymphocytes % 35.0 Monocytes % 8.4 Eosinophils % 1.6 Basophils % 0.5 Nucleated Red Blood Cells % 0.0 Immature Granulocytes # 0.020 Neutrophils # 4.1 Lymphocytes # 2.6 Monocytes # 0.6 Eosinophils # 0.1 Basophils # 0.0 Nucleated Red Blood Cells # 0.0 Sodium Level 142 Potassium Level 3.9 Chloride Level 106 Carbon Dioxide Level 31 Anion Gap 5 Blood Urea Nitrogen 18 Creatinine 0.78 Est Glomerular Filtrat Rate mL/min Glucose Level 98 Calcium Level 9.0 Phosphorus Level 3.7 Magnesium Level 2.0 B-Type Natriuretic Peptide 1540 H Triglycerides Level 61 Cholesterol Level 166 LDL Cholesterol, Calculated 89 HDL Cholesterol 65 Cholesterol/HDL Ratio 2.5 Medications Medication Current Medications IV Flush (NS 3 ml) 3 ml PER PROTOCOL IV ; Start 01/03/19 at 15:00 Ondansetron HCl (Zofran Inj) 4 mg Q6H PRN IV NAUSEA/VOMITING; Start 01/03/19 at 15:00 Acetaminophen (Tylenol Tab) 650 mg Q6H PRN PO .PAIN 1-3 OR TEMP; Start 01/03/19 at 15:00 Acetaminophen/ Hydrocodone Bitart ([place] (5/325)) 1 tab Q6H PRN PO .PAIN 4-6; Start 01/03/19 at 15:00 Enoxaparin Sodium (Lovenox) 30 mg DAILY SC Last administered on 01/04/19at 10:07; Admin Dose 30 MG; Start 01/04/19 at 09:00 Levothyroxine Sodium (Synthroid) 75 mcg BEFORE BREAKFAST PO Last administered on 01/04/19at 07:16; Admin Dose 75 MCG; Start 01/04/19 at 07:00 Aspirin (Halfprin) 81 mg DAILY PO Last administered on 01/04/19at 10:02; Admin Dose 81 MG; Start 01/04/19 at 09:00 Meclizine HCl (Antivert) 12.5 mg TID PRN PO Vertigo; Start 01/03/19 at 15:00 Past Medical History reviewed Home Meds Reported Medications Levothyroxine Sodium* (Levothyroxine Sodium*) 75 Mcg Tablet, 75 MCG PO BEFORE BREAKFAST, #30 TAB 03/23/17 Discontinued Scripts Albuterol Sulfate* (Proair HFA*) 8.5 Gm Hfa.aer.ad, 2 PUFF INH Q6H PRN for COUGH, #1 INHALER Prov:NICCI LARA MD 03/23/17 Ondansetron Hcl* (Zofran*) 4 Mg Tablet, 4 MG PO Q8H PRN for NAUSEA AND/OR VOMITING, #16 TAB Prov:NICCI LARA MD 03/23/17 Medications Current Medications IV Flush (NS 3 ml) 3 ml PER PROTOCOL IV ; Start 01/03/19 at 15:00 Ondansetron HCl (Zofran Inj) 4 mg Q6H PRN IV NAUSEA/VOMITING; Start 01/03/19 at 15:00 Acetaminophen (Tylenol Tab) 650 mg Q6H PRN PO .PAIN 1-3 OR TEMP; Start 01/03/19 at 15:00 Acetaminophen/ Hydrocodone Bitart ([place] (5/325)) 1 tab Q6H PRN PO .PAIN 4-6; Start 01/03/19 at 15:00 Enoxaparin Sodium (Lovenox) 30 mg DAILY SC Last administered on 01/04/19at 10:07; Admin Dose 30 MG; Start 01/04/19 at 09:00 Levothyroxine Sodium (Synthroid) 75 mcg BEFORE BREAKFAST PO Last administered on 01/04/19 07:16; Admin Dose 75 MCG; Start 01/04/19 at 07:00 Aspirin (Halfprin) 81 mg DAILY PO Last administered on 01/04/19at 10:02; Admin Dose 81 MG; Start 01/04/19 at 09:00 Meclizine HCl (Antivert) 12.5 mg TID PRN PO Vertigo; Start 01/03/19 at 15:00 Allergies: Coded Allergies: prednisone (Verified Allergy, Unknown, 01/03/19) Uncoded Allergies: FLU VACCINE (Allergy, Unknown, 01/04/15) TAPE (Allergy, Unknown, 01/04/15) Past Surgical History reviewed Social History Smoking Status: Never smoker ROSALVA LIANG NP Jan 04, 2019 16:12 LUKAS YANEZ Jan 04, 2019 16:51
--- NOTE | 2019-01-04 17:42 | PN ---
Date/Time of Note Date/Time of Note DATE: 01/04/19 TIME: 17:36 Assessment/Plan VTE Prophylaxis Risk score (from Ns)>0 risk: 4 [place] [facility] SCD contraindicated: low risk/ambulating Pharmacological prophylaxis: NA/contraindicated, LMWH Pharm contraindication: low risk/ambulating Lines/Catheters IV Catheter Type (from [facility] Saline Lock Urinary Cath still in place: Yes Reason Cath still needed: urinary retention Assessment/Plan Hospital Course Assessment and plan 1. Recurrent syncope/presyncope. Stable, rule out arrhythmia check orthostatics carotids consider MRI brain. 2. Chronic hypertension 3. Chronic DJD 4. Chronic hypothyroidism 5. Chronic asthma 6. Left pulmonary nodule? Surveillance 7. History of ovarian and cancer 8. Recent UTI? S: States of having intermittent dizziness with spinning sensation nausea vomiting without any known aggravating or relieving factors. Happening weekly? Denies any susan chest pain palpitations focal deficits, susan loss of speech vision during these events. No tongue bite or incontinence. Feels as if the floor is moving toward her. Denies any recent change in medications. Drinks 5 glasses of water a day. Think she recently had a UTI. No symptoms of GI bleed. Occasionally has injuries. Lately she has been able to catch herself before injury. Lately she has been able to lie down to avoid injury. She lives with her disabled spouse. Hard of hearing is probably subacute. Denies any ear fullness/ discharge. O: Vss; sr PE No pallor adenopathy JVD droop. Right bruit? Regular no murmur rub gallop Clear Benign No edema Result Diagram: 01/04/1951901/04/19 0520 Results 24hrs Laboratory Tests Test 01/03/19 18:38 01/04/19 00:24 01/04/19 05:20 Creatine Kinase 82 101 99 Creatine Kinase Index 1.3 1.1 1.2 Creatinine Kinase MB (Mass) 1.06 1.11 1.16 Troponin I 0.029 0.045 0.037 White Blood Count 7.5 # Red Blood Count 4.02 L Hemoglobin 13.1 Hematocrit 39.6 Mean Corpuscular Volume 98.5 Mean Corpuscular Hemoglobin 32.6 Mean Corpuscular Hemoglobin Concent 33.1 Red Cell Distribution Width 12.8 Platelet Count 128 L Mean Platelet Volume 12.1 H Immature Granulocytes % 0.300 Neutrophils % 54.2 Lymphocytes % 35.0 Monocytes % 8.4 Eosinophils % 1.6 Basophils % 0.5 Nucleated Red Blood Cells % 0.0 Immature Granulocytes # 0.020 Neutrophils # 4.1 Lymphocytes # 2.6 Monocytes # 0.6 Eosinophils # 0.1 Basophils # 0.0 Nucleated Red Blood Cells # 0.0 Sodium Level 142 Potassium Level 3.9 Chloride Level 106 Carbon Dioxide Level 31 Anion Gap 5 Blood Urea Nitrogen 18 Creatinine 0.78 Est Glomerular Filtrat Rate mL/min Glucose Level 98 Calcium Level 9.0 Phosphorus Level 3.7 Magnesium Level 2.0 B-Type Natriuretic Peptide 1540 H Triglycerides Level 61 Cholesterol Level 166 LDL Cholesterol, Calculated 89 HDL Cholesterol 65 Cholesterol/HDL Ratio 2.5 Exam/Review of Systems Exam Vitals Vital Signs Date Temp Pulse Resp B/P (MAP) Pulse Ox O2 O2 Flow FiO2 Time Delivery Rate 01/04/19 63 16:33 01/04/19 98.4 18 100/55 96 15:38 (70) 01/03/19 Room Air 16:06 Intake and Output 01/03/19 01/03/19 01/04/19 1515:00 23:00 07:00 OutputOutput Total 1100 ml BalanceBalance -1100 ml Results Results 24hrs Laboratory Tests Test 01/03/19 18:38 01/04/19 00:24 01/04/19 05:20 Creatine Kinase 82 101 99 Creatine Kinase Index 1.3 1.1 1.2 Creatinine Kinase MB (Mass) 1.06 1.11 1.16 Troponin I 0.029 0.045 0.037 White Blood Count 7.5 # Red Blood Count 4.02 L Hemoglobin 13.1 Hematocrit 39.6 Mean Corpuscular Volume 98.5 Mean Corpuscular Hemoglobin 32.6 Mean Corpuscular Hemoglobin Concent 33.1 Red Cell Distribution Width 12.8 Platelet Count 128 L Mean Platelet Volume 12.1 H Immature Granulocytes % 0.300 Neutrophils % 54.2 Lymphocytes % 35.0 Monocytes % 8.4 Eosinophils % 1.6 Basophils % 0.5 Nucleated Red Blood Cells % 0.0 Immature Granulocytes # 0.020 Neutrophils # 4.1 Lymphocytes # 2.6 Monocytes # 0.6 Eosinophils # 0.1 Basophils # 0.0 Nucleated Red Blood Cells # 0.0 Sodium Level 142 Potassium Level 3.9 Chloride Level 106 Carbon Dioxide Level 31 Anion Gap 5 Blood Urea Nitrogen 18 Creatinine 0.78 Est Glomerular Filtrat Rate mL/min Glucose Level 98 Calcium Level 9.0 Phosphorus Level 3.7 Magnesium Level 2.0 B-Type Natriuretic Peptide 1540 H Triglycerides Level 61 Cholesterol Level 166 LDL Cholesterol, Calculated 89 HDL Cholesterol 65 Cholesterol/HDL Ratio 2.5 Medications Medication Current Medications IV Flush (NS 3 ml) 3 ml PER PROTOCOL IV ; Start 01/03/19 at 15:00 Ondansetron HCl (Zofran Inj) 4 mg Q6H PRN IV NAUSEA/VOMITING; Start 01/03/19 at 15:00 Acetaminophen (Tylenol Tab) 650 mg Q6H PRN PO .PAIN 1-3 OR TEMP; Start 01/03/19 at 15:00 Acetaminophen/ Hydrocodone Bitart ([place] (5/325)) 1 tab Q6H PRN PO .PAIN 4-6; Start 01/03/19 at 15:00 Enoxaparin Sodium (Lovenox) 30 mg DAILY SC Last administered on 01/04/19at 10:07; Admin Dose 30 MG; Start 01/04/19 at 09:00 Levothyroxine Sodium (Synthroid) 75 mcg BEFORE BREAKFAST PO Last administered on 01/04/19at 07:16; Admin Dose 75 MCG; Start 01/04/19 at 07:00 Aspirin (Halfprin) 81 mg DAILY PO Last administered on 01/04/19at 10:02; Admin Dose 81 MG; Start 01/04/19 at 09:00 Meclizine HCl (Antivert) 12.5 mg TID PRN PO Vertigo; Start 01/03/19 at 15:00 Atorvastatin Calcium (Lipitor) 20 mg HS PO ; Start 01/04/19 at 21:00 RITA PARKER MD Jan 04, 2019 17:42
[2019-01-04] MEDS ORDERED: DOCUSATE SODIUM 100 MG CAP PO PRN (18:00)
[2019-01-04] MEDS: ATORVASTATIN 20 MG TAB PO SCH (20:15)
[2019-01-04] MEDS: HYDROCODONE/APAP (5/325) TAB PO PRN (20:15)
[2019-01-05] VITALS (16 sets, daily range): BP systolic 101–154; BP diastolic 51–59; PULSE 33–87; RESP 18–22
[2019-01-05] MEDS: LEVOTHYROXINE 75 MCG TAB PO SCH (06:52)
[2019-01-05] MEDS: ASPIRIN (EC) 81 MG TAB PO SCH (07:58)
--- NOTE | 2019-01-05 10:28 | CONS ---
Assessment/Plan Assessment/Plan Hospital Course (Demo Recall) Syncope: Echo shows normal EF and valves. Some episodes are likely due to orthostatic hypotension but some while sitting are concerning. Tele shows some episodes of sinus bradycardia in the 30-40s and post PAC/PVC pauses up to 2.5 seconds concerning for sick sinus syndrome. She may need a PPM and she is agreeable to evaluation. PAC/PVCs: isolated and no symptoms. Normal EF. No BB/CCB with bradycardia Hypothyroidism -will have EP evaluate for possible PPM. Pt agreeable -orthostatic precautions Consultation Date/Type/Reason Admit Date/Time Jan 03, 2019 at 14:13 Initial Consult Date 01/04/19 Type of Consult Cardiology Requesting Provider: NENA EDWARDS NP Date/Time of Note DATE: 01/05/19 TIME: 10:24 24 HR Interval Summary Free Text/Dictation Patient was a much better historian today and seemed to comprehend better. She had some dizziness when standing today and does have dizziness with standing at home. However she has had episode of syncope and dizziness while sitting in her chair. Tele shows some episodes of sinus bradycardia in the 30-40s and post PAC/PVC pauses up to 2.5 seconds concerning for sick sinus syndrome. Exam/Review of Systems Exam Vitals Vital Signs Date Temp Pulse Resp B/P (MAP) Pulse Ox O2 O2 Flow FiO2 Time Delivery Rate 01/05/19 54 08:05 01/05/19 97.0 116/58 96 Nasal 07:19 (77) Cannula 01/05/19 18 04:09 Intake and Output 01/04/19 01/04/19 01/05/19 1515:00 23:00 07:00 IntakeIntake Total 300 ml BalanceBalance 300 ml Constitutional: alert, oriented Psych: no complaints, nl mood/affect Head: normocephalic, atraumatic Neck: supple; No jvd Respiratory: clear to auscultation; No crackles/rales Cardiovascular: regular rate and rhythm; No edema Gastrointestinal: soft, non-tender Neurological: nl mental status, nl speech Results Result Diagram: 01/04/19 0520 01/05/19 0453 Results 24hrs Laboratory Tests Test 01/05/19 04:53 Sodium Level 139 Potassium Level 4.0 Chloride Level 103 Carbon Dioxide Level 32 H Anion Gap 4 L Blood Urea Nitrogen 16 Creatinine 0.77 Est Glomerular Filtrat Rate mL/min Glucose Level 91 Calcium Level 8.4 Phosphorus Level 3.9 Magnesium Level 2.0 Ferritin 122.0 Total Bilirubin 0.5 Direct Bilirubin 0.00 Indirect Bilirubin 0.5 Aspartate Amino Transf (AST/SGOT) 18 Alanine Aminotransferase (ALT/SGPT) 20 Alkaline Phosphatase 61 Total Protein 5.2 L Albumin 2.8 L Globulin 2.40 Albumin/Globulin Ratio 1.16 Vitamin B12 Level 510 Folate 7.3 Medications Medication Current Medications IV Flush (NS 3 ml) 3 ml PER PROTOCOL IV ; Start 01/03/19 at 15:00 Ondansetron HCl (Zofran Inj) 4 mg Q6H PRN IV NAUSEA/VOMITING; Start 01/03/19 at 15:00 Acetaminophen (Tylenol Tab) 650 mg Q6H PRN PO .PAIN 1-3 OR TEMP; Start 01/03/19 at 15:00 Acetaminophen/ Hydrocodone Bitart ([place] (5/325)) 1 tab Q6H PRN PO .PAIN 4-6 Last administered on 01/04/19at 20:15; Admin Dose 1 TAB; Start 01/03/19 at 15:00 Enoxaparin Sodium (Lovenox) 30 mg DAILY SC Last administered on 01/04/19at 10:07; Admin Dose 30 MG; Start 01/04/19 at 09:00 Levothyroxine Sodium (Synthroid) 75 mcg BEFORE BREAKFAST PO Last administered on 01/04/19 07:16; Admin Dose 75 MCG; Start 01/04/19 at 07:00 Aspirin (Halfprin) 81 mg DAILY PO Last administered on 01/05/19at 07:58; Admin Dose 81 MG; Start 01/04/19 at 09:00 Meclizine HCl (Antivert) 12.5 mg TID PRN PO Vertigo; Start 01/03/19 at 15:00 Atorvastatin Calcium (Lipitor) 20 mg HS PO Last administered on 01/04/19at 20:15; Admin Dose 20 MG; Start 01/04/19 at 21:00 Docusate Sodium (Colace) 100 mg BID PRN PO CONSTIPATION; Start 01/04/19 at 18:00 NELSON CORBIN Jan 05, 2019 10:28
[2019-01-05] MEDS: ENOXAPARIN 30 MG/0.3 ML SYG SC SCH (10:39)
--- NOTE | 2019-01-05 13:36 | CONS ---
Assessment/Plan Assessment/Plan Hospital Course 88 F c/ reported Hx of stroke, cancers, and other comorbidities...who presents for evaluation of recurrent vertigo..c/b fall w/ ? LOC...for which neurology is consulted.. The clinical picture could be consistent w/ peripheral vertigo.. However, a central vertigo is not yet excluded.. CTH is unrevealing. P: Await MRI brain w/ and w/o contrast for further characterization Agree w/ asa daily for now Add lipitor for now, pending the above Meclizine prn PT/OT as able Medication reconciliation and other management per primary Will follow Consultation Date/Type/Reason Admit Date/Time Jan 03, 2019 at 14:13 Type of Consult Neurology Reason for Consultation vertigo Requesting Provider: NENA EDWARDS NP Date/Time of Note DATE: 01/05/19 TIME: 13:36 24 HR Interval Summary Free Text/Dictation Continues acute care Exam Vital Signs Vitals Vital Signs Date Temp Pulse Resp B/P (MAP) Pulse Ox O2 O2 Flow FiO2 Time Delivery Rate 01/05/19 53 12:33 01/05/19 97.8 22 118/59 96 Room Air 11:32 (78) Intake and Output 01/04/19 01/04/19 01/05/19 1515:00 23:00 07:00 IntakeIntake Total 300 ml BalanceBalance 300 ml Exam PE: Gen Appearance: No Apparent Distress HEENT: Normocephalic Cardiovascular: Regular rate Lungs: Clear bilaterally Abdomen: Soft Extremities: Dry NE: The patient was alert and grossly oriented. Oriented to self, hospital, and most parts of situation. Language was normal. Fund of knowledge was normal. Pupils were equal and reactive to light. There was no afferent pupillary defect. Visual mills were normal. Funduscopic examination was limited. Extra-ocular movements were full. Ptosis was absent. There was no nystagmus. Facial sensation was normal. Face was symmetric with normal strength. Hearing was intact. Palate movements were normal. Neck strength was normal. There was normal tongue bulk and speed of movement. Tone was normal. Muscle bulk was diminished. I did not see fasciculations. Arms were mildly weak; legs were very weak and symmetric. Vibration sensation was normal. Temperature and pinprick sensation was normal. Rapid alternating movements were normal. There was dysmetria noted in the RUE. There was no intention tremor. Gait was deferred due to bedrest. Arm and leg reflexes were 2+ and symmetric. De Oliveira's sign was absent. Plantar responses were flexor. ROSALVA LIANG NP Jan 05, 2019 13:36 LUKAS YANEZ Jan 05, 2019 14:46
--- NOTE | 2019-01-05 13:48 | PN ---
Date/Time of Note Date/Time of Note DATE: 01/05/19 TIME: 13:46 Assessment/Plan VTE Prophylaxis Risk score (from Ns)>0 risk: 7 SCD applied (from [facility] [place] Yes SCD contraindicated: low risk/ambulating Pharmacological prophylaxis: NA/contraindicated, LMWH Pharm contraindication: low risk/ambulating Lines/Catheters IV Catheter Type (from [facility]): Saline Lock Urinary Cath still in place: No Assessment/Plan Hospital Course Assessment and plan 1. Recurrent syncope/presyncope. Stable, rlo arrhythmia; sp orthostatics/ carotids. MRI- P. Differential: Sick sinus syndrome, Mnire's disease 2. Chronic hypertension 3. Chronic DJD 4. Chronic hypothyroidism 5. Chronic asthma 6. Left pulmonary nodule? Surveillance 7. History of ovarian and cancer 8. Recent UTI? Repeat UA 9. Sinus bradycardia pauses possible sick sinus syndrome. Patient for EP eval. S: 01/04 states of having intermittent dizziness with spinning sensation nausea vomiting without any known aggravating or relieving factors. Happening weekly? Denies any susan chest pain palpitations focal deficits, susan loss of speech vision during these events. No tongue bite or incontinence. Feels as if the floor is moving toward her. Denies any recent change in medications. Drinks 5 glasses of water a day. Think she recently had a UTI. No symptoms of GI bleed. Occasionally has injuries. Lately she has been able to catch herself before injury. Lately she has been able to lie down to avoid injury. She lives with her disabled spouse. Hard of hearing is probably subacute. Denies any ear fullness/ discharge. 01/05 no syncope. Positive fatigue dizziness. Heart rate even down to 32 but was asymptomatic overnight. Pauses noted additionally O: Vss; sr PE No pallorJVD droop. Rt bruit? Regular no m/r/g Clear Benign No edema Neuro: Nonfocal Result Diagram: 01/04/19 0520 01/05/19 0453 Results 24hrs Laboratory Tests Test 01/05/19 04:53 Sodium Level 139 Potassium Level 4.0 Chloride Level 103 Carbon Dioxide Level 32 H Anion Gap 4 L Blood Urea Nitrogen 16 Creatinine 0.77 Est Glomerular Filtrat Rate mL/min Glucose Level 91 Calcium Level 8.4 Phosphorus Level 3.9 Magnesium Level 2.0 Ferritin 122.0 Total Bilirubin 0.5 Direct Bilirubin 0.00 Indirect Bilirubin 0.5 Aspartate Amino Transf (AST/SGOT) 18 Alanine Aminotransferase (ALT/SGPT) 20 Alkaline Phosphatase 61 Total Protein 5.2 L Albumin 2.8 L Globulin 2.40 Albumin/Globulin Ratio 1.16 Vitamin B12 Level 510 Folate 7.3 Exam/Review of Systems Exam Vitals Vital Signs Date Temp Pulse Resp B/P (MAP) Pulse Ox O2 O2 Flow FiO2 Time Delivery Rate 01/05/19 53 12:33 01/05/19 97.8 22 118/59 96 Room Air 11:32 (78) Intake and Output 01/04/19 01/04/19 01/05/19 1515:00 23:00 07:00 IntakeIntake Total 300 ml BalanceBalance 300 ml Results Results 24hrs Laboratory Tests Test 01/05/19 04:53 Sodium Level 139 Potassium Level 4.0 Chloride Level 103 Carbon Dioxide Level 32 H Anion Gap 4 L Blood Urea Nitrogen 16 Creatinine 0.77 Est Glomerular Filtrat Rate mL/min Glucose Level 91 Calcium Level 8.4 Phosphorus Level 3.9 Magnesium Level 2.0 Ferritin 122.0 Total Bilirubin 0.5 Direct Bilirubin 0.00 Indirect Bilirubin 0.5 Aspartate Amino Transf (AST/SGOT) 18 Alanine Aminotransferase (ALT/SGPT) 20 Alkaline Phosphatase 61 Total Protein 5.2 L Albumin 2.8 L Globulin 2.40 Albumin/Globulin Ratio 1.16 Vitamin B12 Level 510 Folate 7.3 Medications Medication Current Medications IV Flush (NS 3 ml) 3 ml PER PROTOCOL IV ; Start 01/03/19 at 15:00 Ondansetron HCl (Zofran Inj) 4 mg Q6H PRN IV NAUSEA/VOMITING; Start 01/03/19 at 15:00 Acetaminophen (Tylenol Tab) 650 mg Q6H PRN PO .PAIN 1-3 OR TEMP; Start 01/03/19 at 15:00 Acetaminophen/ Hydrocodone Bitart ([place] (5/325)) 1 tab Q6H PRN PO .PAIN 4-6 Last administered on 01/04/19at 20:15; Admin Dose 1 TAB; Start 01/03/19 at 15:00 Enoxaparin Sodium (Lovenox) 30 mg DAILY SC Last administered on 01/05/19at 10:39; Admin Dose 30 MG; Start 01/04/19 at 09:00 Levothyroxine Sodium (Synthroid) 75 mcg BEFORE BREAKFAST PO Last administered on 01/04/19at 07:16; Admin Dose 75 MCG; Start 01/04/19 at 07:00 Aspirin (Halfprin) 81 mg DAILY PO Last administered on 01/05/19at 07:58; Admin Dose 81 MG; Start 01/04/19 at 09:00 Meclizine HCl (Antivert) 12.5 mg TID PRN PO Vertigo; Start 01/03/19 at 15:00 Atorvastatin Calcium (Lipitor) 20 mg HS PO Last administered on 01/04/19at 20:15; Admin Dose 20 MG; Start 01/04/19 at 21:00 Docusate Sodium (Colace) 100 mg BID PRN PO CONSTIPATION; Start 01/04/19 at 18:00 RITA PARKER MD Jan 05, 2019 13:48
[2019-01-05] MEDS: NITROFURANTOIN (SR) 100 MG CAP PO SCH ×2 (15:46→22:05)
[2019-01-05] MEDS: ATORVASTATIN 20 MG TAB PO SCH (20:38)
[2019-01-05] MEDS: HYDROCODONE/APAP (5/325) TAB PO PRN (20:38)
[2019-01-05] MEDS: MECLIZINE 12.5 MG TAB PO SCH (20:38)
[2019-01-05] MEDS: PHENAZOPYRIDINE 200 MG TAB PO SCH (20:38)
[2019-01-06] VITALS (10 sets, daily range): BP systolic 106–134; BP diastolic 53–74; PULSE 50–66; RESP 18–19
[2019-01-06] MEDS: LEVOTHYROXINE 75 MCG TAB PO SCH ×2 (07:00→07:42)
[2019-01-06] MEDS: NITROFURANTOIN (SR) 100 MG CAP PO SCH ×2 (07:42→21:13)
[2019-01-06] MEDS: ASPIRIN (EC) 81 MG TAB PO SCH (07:42)
[2019-01-06] MEDS: PHENAZOPYRIDINE 200 MG TAB PO SCH ×3 (07:42→21:13)
[2019-01-06] MEDS: MECLIZINE 12.5 MG TAB PO SCH ×3 (07:42→21:12)
[2019-01-06] MEDS: ENOXAPARIN 30 MG/0.3 ML SYG SC SCH (07:49)
--- NOTE | 2019-01-06 09:39 | CONS ---
DATE OF ADMISSION: 01/05/2019 DATE OF CONSULTATION: 01/06/2019 INDICATION FOR CONSULTATION: Severe bradycardia with recurrent syncope and symptomatic bradycardia a s well. REFERRING PHYSICIAN: Dr. Nelson Corbin. Thank you, Dr. Corbin for allowing me to participate in the care of your patient. HISTORY OF PRESENT ILLNESS: This is an 88-year-old female with a past medical history of hypertensio n, hyperlipidemia, who has not been on any cardioinhibitory medications, has had recurrent syncope an d severe bradycardia while in the hospital with symptoms of lightheadedness and dizziness. The lowes t heart rate has been reported at approximately 29 to 32 beats per minute. I was consulted to evaluate her in regards to implanting a pacemaker. I spoke with the patient in detail including the risks and benefits of the procedure and the patient agrees to have the pacemaker implanted. PHYSICAL EXAMINATION: GENERAL: The patient is awake, alert, oriented x3. VITAL SIGNS: Blood pressure is approximately 130/70, heart rate is approximately 42 beats per minute currently. Sinus bradycardia with episodes of PVC. CHEST: Clear to auscultation bilaterally. CARDIOVASCULAR: S1, S2, no rubs or gallops. ABDOMEN: Soft, positive bowel sounds. EXTREMITIES: No clubbing or edema. REVIEW OF SYSTEMS: As above. The patient denies nausea, vomiting, fevers or chills and notes significant chest pain or shortness o f breath. MEDICATIONS: Medications have been reviewed. She is not on cardioinhibitory medications. LABORATORY DATA: Laboratory has been reviewed. IMPRESSION: 1. Severe bradycardia with symptoms of lightheadedness and dizziness. 2. Recurrent syncope, most likely secondary to the bradycardia. PLAN: I spoke with the nurse in detail and we will stop the Lovenox and we will start her on SCD pum ps for DVT prophylaxis. The patient will require pacemaker implant. She is not on any cardioinhibitory medications and the h eart rate dropped all the way down to 29 to 32 beats per minute. The patient understands the risks and benefits of the procedure and wants the pacemaker to be implant ed. Thank you, Dr. Corbin for allowing me to participate in the care of your patient. Sincerely, Dictated By: COCO PEARSON MD, LP/HARJEET Conf#: [id number] DID#: [id number] CC: NELSON CORBIN MD; MARCO ANTONIO DAVIS MD; RITA PARKER MD;*End*
--- NOTE | 2019-01-06 12:05 | CONS ---
Assessment/Plan Assessment/Plan Hospital Course (Demo Recall) Syncope: Echo shows normal EF and valves. Some episodes are likely due to orthostatic hypotension but some while sitting are concerning. Tele shows some episodes of sinus bradycardia in the 30-40s and post PAC/PVC pauses up to 2.5 seconds concerning for sick sinus syndrome. Seen by EP who also agrees she needs a PPM PAC/PVCs: isolated and no symptoms. Normal EF. No BB/CCB with bradycardia Hypothyroidism -plan for PPM. Timing per Dr. Rao -orthostatic precautions Consultation Date/Type/Reason Admit Date/Time Jan 05, 2019 at 13:45 Initial Consult Date 01/04/19 Type of Consult Cardiology Requesting Provider: NENA EDWARDS NP Date/Time of Note DATE: 01/06/19 TIME: 12:03 24 HR Interval Summary Free Text/Dictation Seen by Dr Rao. Plan for PPM. Pt agreeable. Still with post PAC/PVC significant pauses and sinus bradycardia to 40s at times Exam/Review of Systems Exam Vitals Vital Signs Date Temp Pulse Resp B/P (MAP) Pulse Ox O2 O2 Flow FiO2 Time Delivery Rate 01/06/19 98.5 50 18 134/70 95 11:10 (91) 01/05/19 Nasal 3.0 15:27 Cannula Intake and Output 01/05/19 01/05/19 01/06/19 1515:00 23:00 07:00 IntakeIntake Total 650 ml 300 ml BalanceBalance 650 ml 300 ml Constitutional: alert, oriented Psych: no complaints, nl mood/affect Head: normocephalic, atraumatic Neck: supple; No jvd Respiratory: clear to auscultation; No crackles/rales Cardiovascular: regular rate and rhythm; No edema Gastrointestinal: soft, non-tender Neurological: nl mental status, nl speech Results Result Diagram: 01/04/19 0520 01/05/19 0453 Medications Medication Current Medications IV Flush (NS 3 ml) 3 ml PER PROTOCOL IV ; Start 01/03/19 at 15:00 Ondansetron HCl (Zofran Inj) 4 mg Q6H PRN IV NAUSEA/VOMITING; Start 01/03/19 at 15:00 Acetaminophen (Tylenol Tab) 650 mg Q6H PRN PO .PAIN 1-3 OR TEMP; Start 01/03/19 at 15:00 Acetaminophen/ Hydrocodone Bitart ([place] (5/325)) 1 tab Q6H PRN PO .PAIN 4-6 Last administered on 01/05/19 20:38; Admin Dose 1 TAB; Start 01/03/19 at 15:00 Enoxaparin Sodium (Lovenox) 30 mg DAILY SC Last administered on 01/06/19 07:49; Admin Dose 30 MG; Start 01/04/19 at 09:00; Status Hold Levothyroxine Sodium (Synthroid) 75 mcg BEFORE BREAKFAST PO Last administered on 01/06/19 07:42; Admin Dose 75 MCG; Start 01/04/19 at 07:00 Aspirin (Halfprin) 81 mg DAILY PO Last administered on 01/06/19 07:42; Admin Dose 81 MG; Start 01/04/19 at 09:00 Atorvastatin Calcium (Lipitor) 20 mg HS PO Last administered on 01/05/19 20:38; Admin Dose 20 MG; Start 01/04/19 at 21:00 Docusate Sodium (Colace) 100 mg BID PRN PO CONSTIPATION; Start 01/04/19 at 18:00 Phenazopyridine HCl (Pyridium) 200 mg TID PO Last administered on 01/05/19 20:38; Admin Dose 200 MG; Start 01/05/19 at 21:00; Stop 01/07/19 at 23:00 Nitrofurantoin Macrocrystals (Macrobid) 100 mg BID PO Last administered on 01/06/19 07:42; Admin Dose 100 MG; Start 01/05/19 at 14:30 Meclizine HCl (Antivert) 12.5 mg TID PO Last administered on 01/06/19 07:42; Admin Dose 12.5 MG; Start 01/05/19 at 21:00 NELSON CORBIN Jan 06, 2019 12:05
--- NOTE | 2019-01-06 14:58 | CONS ---
Assessment/Plan Assessment/Plan Hospital Course 88 F c/ reported Hx of stroke, cancers, and other comorbidities...who presents for evaluation of recurrent vertigo..c/b fall w/ ? LOC...for which neurology is consulted.. The clinical picture is most clinically consistent w/ peripheral vertigo.. MRI brain is reassuringly without intracranial pathology. P: Cont scheduled meclizine for now PT/OT as able Medication reconciliation and other management per primary Will follow Consultation Date/Type/Reason Admit Date/Time Jan 05, 2019 at 13:45 Type of Consult Neurology Requesting Provider: NENA EDWARDS NP Date/Time of Note DATE: 01/06/19 TIME: 14:55 24 HR Interval Summary Free Text/Dictation Continues telemetry. Awaiting pacemaker placement. Exam Vital Signs Vitals Vital Signs Date Temp Pulse Resp B/P (MAP) Pulse Ox O2 O2 Flow FiO2 Time Delivery Rate 01/06/19 62 12:11 01/06/19 98.5 18 134/70 95 11:10 (91) 01/05/19 Nasal 3.0 15:27 Cannula Intake and Output 01/05/19 01/05/19 01/06/19 1515:00 23:00 07:00 IntakeIntake Total 650 ml 300 ml BalanceBalance 650 ml 300 ml Exam PE: Gen Appearance: No Apparent Distress HEENT: Normocephalic Cardiovascular: Regular rate Lungs: Clear bilaterally Abdomen: Soft Extremities: Dry NE: The patient was alert and grossly oriented. Oriented to self, hospital, and most parts of situation. Language was normal. Fund of knowledge was normal. Pupils were equal and reactive to light. There was no afferent pupillary defect. Visual mills were normal. Funduscopic examination was limited. Extra-ocular movements were full. Ptosis was absent. There was no nystagmus. Facial sensation was normal. Face was symmetric with normal strength. Hearing was intact. Palate movements were normal. Neck strength was normal. There was normal tongue bulk and speed of movement. Tone was normal. Muscle bulk was diminished. I did not see fasciculations. Arms were mildly weak; legs were very weak and symmetric. Vibration sensation was normal. Temperature and pinprick sensation was normal. Rapid alternating movements were normal. There was dysmetria noted in the RUE. There was no intention tremor. Gait was deferred due to bedrest. Arm and leg reflexes were 2+ and symmetric. De Oliveira's sign was absent. Plantar responses were flexor. ROSALVA LIANG NP Jan 06, 2019 14:58 LUKAS YANEZ Jan 06, 2019 15:00
--- NOTE | 2019-01-06 16:56 | PN ---
Date/Time of Note Date/Time of Note DATE: 01/06/19 TIME: 16:54 Assessment/Plan VTE Prophylaxis Risk score (from Ns)>0 risk: 7 SCD applied (from Ns): Yes SCD contraindicated: low risk/ambulating Pharmacological prophylaxis: NA/contraindicated Pharm contraindication: surgical contra Lines/Catheters IV [facility]ter [facility]from [facility] Saline Lock Urinary Cath still in place: No Assessment/Plan Hospital Course Assessment and plan 1. Recurrent syncope/presyncope. Stable, r/o arrhythmia; sp orthostatics/ carotids. MRI- P. Differential: Sick sinus syndrome, BPPV. 2. Chronic hypertension 3. Chronic DJD 4. Chronic hypothyroidism 5. Chronic asthma 6. Left pulmonary nodule? Surveillance 7. History of ovarian and cancer 8. Recent UTI? Repeat UA pending. 3-day treatment empirically. Ok for pacemaker from medical standpoint. 9. Sinus bradycardia/ SSS for Pacemaker. 10. Failure to thrive. Recommended snf. Presently refused. Might be an option as she will be in a sling for 2 weeks. S: 01/04 states of having intermittent dizziness with spinning sensation nausea vomiting without any known aggravating or relieving factors. Happening weekly? Denies any susan chest pain palpitations focal deficits, susan loss of speech vision during these events. No tongue bite or incontinence. Feels as if the floor is moving toward her. Denies any recent change in medications. Drinks 5 glasses of water a day. Think she recently had a UTI. No symptoms of GI bleed. Occasionally has injuries. Lately she has been able to catch herself before injury. Lately she has been able to lie down to avoid injury. She lives with her disabled spouse. Hard of hearing is probably subacute. Denies any ear fullness/ discharge. 01/05 no syncope. Positive fatigue dizziness. Heart rate even down to 32 but was asymptomatic overnight. Pauses noted additionally 01/06: No events or syncope. No loss of speech or vision. No fever. Claims to have dysuria but culture appears unremarkable O: Vss; sr PE No pallor JVD droop Regular no m/r/g Clear Benign No edema Neuro: Nonfocal Result Diagram: 01/04/19 0520 01/05/19 0453 Exam/Review of Systems Exam Vitals Vital Signs Date Temp Pulse Resp B/P (MAP) Pulse Ox O2 O2 Flow FiO2 Time Delivery Rate 01/06/19 56 16:01 01/06/19 98.0 18 126/65 95 15:41 (85) 01/05/19 Nasal 3.0 15:27 Cannula Intake and Output 01/05/19 01/05/19 01/06/19 1515:00 23:00 07:00 IntakeIntake Total 650 ml 300 ml BalanceBalance 650 ml 300 ml Medications Medication Current Medications IV Flush (NS 3 ml) 3 ml PER PROTOCOL IV ; Start 01/03/19 at 15:00 Ondansetron HCl (Zofran Inj) 4 mg Q6H PRN IV NAUSEA/VOMITING; Start 01/03/19 at 15:00 Acetaminophen (Tylenol Tab) 650 mg Q6H PRN PO .PAIN 1-3 OR TEMP; Start 01/03/19 at 15:00 Acetaminophen/ Hydrocodone Bitart ([place] (5/325)) 1 tab Q6H PRN PO .PAIN 4-6 Last administered on 01/05/19 20:38; Admin Dose 1 TAB; Start 01/03/19 at 15:00 Enoxaparin Sodium (Lovenox) 30 mg DAILY SC Last administered on 01/06/19 07:49; Admin Dose 30 MG; Start 01/04/19 at 09:00; Status Hold Levothyroxine Sodium (Synthroid) 75 mcg BEFORE BREAKFAST PO Last administered on 01/06/19 07:42; Admin Dose 75 MCG; Start 01/04/19 at 07:00 Aspirin (Halfprin) 81 mg DAILY PO Last administered on 01/06/19 07:42; Admin Dose 81 MG; Start 01/04/19 at 09:00 Atorvastatin Calcium (Lipitor) 20 mg HS PO Last administered on 01/05/19 20:38; Admin Dose 20 MG; Start 01/04/19 at 21:00 Docusate Sodium (Colace) 100 mg BID PRN PO CONSTIPATION; Start 01/04/19 at 18:00 Phenazopyridine HCl (Pyridium) 200 mg TID PO Last administered on 01/06/19at 12:45; Admin Dose 200 MG; Start 01/05/19 at 21:00; Stop 01/07/19 at 23:00 Nitrofurantoin Macrocrystals (Macrobid) 100 mg BID PO Last administered on 2/27/19at 07:42; Admin Dose 100 MG; Start 01/05/19 at 14:30 Meclizine HCl (Antivert) 12.5 mg TID PO Last administered on 01/06/19at 12:45; Admin Dose 12.5 MG; Start 01/05/19 at 21:00 RITA PARKER MD Jan 06, 2019 16:56
[2019-01-06] MEDS: ATORVASTATIN 20 MG TAB PO SCH (21:12)
[2019-01-07] VITALS (26 sets, daily range): BP systolic 120–160; BP diastolic 58–79; PULSE 60–78; RESP 17–24
[2019-01-07] MEDS: ASPIRIN (EC) 81 MG TAB PO SCH (08:37)
[2019-01-07] MEDS: PHENAZOPYRIDINE 200 MG TAB PO SCH ×3 (08:37→20:08)
[2019-01-07] MEDS: NITROFURANTOIN (SR) 100 MG CAP PO SCH ×2 (08:37→20:08)
[2019-01-07] MEDS: MECLIZINE 12.5 MG TAB PO SCH ×3 (08:37→20:09)
--- NOTE | 2019-01-07 08:47 | CONS ---
Assessment/Plan Assessment/Plan Hospital Course (Demo Recall) Syncope: Echo shows normal EF and valves. Some episodes are likely due to orthostatic hypotension but some while sitting are concerning. Tele shows some episodes of sinus bradycardia in the 30-40s and post PAC/PVC pauses up to 2.5 seconds concerning for sick sinus syndrome. Seen by EP who also agrees she needs a PPM PAC/PVCs: isolated and no symptoms. Normal EF. No BB/CCB with bradycardia Hypothyroidism -plan for PPM today with Dr. Rao Consultation Date/Type/Reason Admit Date/Time Jan 05, 2019 at 13:45 Initial Consult Date 01/04/19 Type of Consult Cardiology Requesting Provider: NENA EDWARDS NP Date/Time of Note DATE: 01/07/19 TIME: 08:46 24 HR Interval Summary Free Text/Dictation PPM scheduled for today. Nervous but no complaints Exam/Review of Systems Exam Vitals Vital Signs Date Temp Pulse Resp B/P (MAP) Pulse Ox O2 O2 Flow FiO2 Time Delivery Rate 01/07/19 65 08:07 01/07/19 98.1 22 145/76 96 Room Air 07:26 (99) 01/05/19 3.0 15:27 Intake and Output 01/06/19 01/06/19 01/07/19 1515:00 23:00 07:00 IntakeIntake Total 500 ml 400 ml BalanceBalance 500 ml 400 ml Constitutional: alert, oriented Psych: no complaints, nl mood/affect Head: normocephalic, atraumatic Neck: supple; No jvd Respiratory: clear to auscultation; No crackles/rales Cardiovascular: regular rate and rhythm, systolic murmur (2/6 BRITT); No edema Gastrointestinal: soft, non-tender Neurological: nl mental status, nl speech Results Result Diagram: 01/04/19 0520 01/07/19 0541 Results 24hrs Laboratory Tests Test 01/07/19 05:41 Sodium Level 142 Potassium Level 3.7 Chloride Level 107 Carbon Dioxide Level 30 Anion Gap 5 Blood Urea Nitrogen 13 Creatinine 0.67 Est Glomerular Filtrat Rate mL/min Glucose Level 101 Calcium Level 9.0 Magnesium Level 2.1 Medications Medication Current Medications IV Flush (NS 3 ml) 3 ml PER PROTOCOL IV ; Start 01/03/19 at 15:00 Ondansetron HCl (Zofran Inj) 4 mg Q6H PRN IV NAUSEA/VOMITING; Start 01/03/19 at 15:00 Acetaminophen (Tylenol Tab) 650 mg Q6H PRN PO .PAIN 1-3 OR TEMP; Start 01/03/19 at 15:00 Acetaminophen/ Hydrocodone Bitart ([place] (5/325)) 1 tab Q6H PRN PO .PAIN 4-6 Last administered on 01/05/19 20:38; Admin Dose 1 TAB; Start 01/03/19 at 15:00 Enoxaparin Sodium (Lovenox) 30 mg DAILY SC Last administered on 01/06/19 07:49; Admin Dose 30 MG; Start 01/04/19 at 09:00; Status Hold Levothyroxine Sodium (Synthroid) 75 mcg BEFORE BREAKFAST PO Last administered on 01/06/19 07:42; Admin Dose 75 MCG; Start 01/04/19 at 07:00 Aspirin (Halfprin) 81 mg DAILY PO Last administered on 01/06/19 07:42; Admin Dose 81 MG; Start 01/04/19 at 09:00 Atorvastatin Calcium (Lipitor) 20 mg HS PO Last administered on 01/06/19 21:12; Admin Dose 20 MG; Start 01/04/19 at 21:00 Docusate Sodium (Colace) 100 mg BID PRN PO CONSTIPATION; Start 01/04/19 at 18:00 Phenazopyridine HCl (Pyridium) 200 mg TID PO Last administered on 01/06/19 21:13; Admin Dose 200 MG; Start 01/05/19 at 21:00; Stop 01/07/19 at 23:00 Nitrofurantoin Macrocrystals (Macrobid) 100 mg BID PO Last administered on 01/06/19 21:13; Admin Dose 100 MG; Start 01/05/19 at 14:30 Meclizine HCl (Antivert) 12.5 mg TID PO Last administered on 01/06/19 21:12; Admin Dose 12.5 MG; Start 01/05/19 at 21:00 NELSON CORBIN Jan 07, 2019 08:47
[2019-01-07] MEDS ORDERED: POLYMYXIN/BACITRACIN 1L IRRIG ONE (13:56)
--- NOTE | 2019-01-07 14:00 | CONS ---
Assessment/Plan Assessment/Plan Hospital Course 88 F c/ reported Hx of stroke, cancers, and other comorbidities...who presents for evaluation of recurrent vertigo..c/b fall w/ ? LOC...for which neurology is consulted.. The clinical picture most clinically consistent w/ peripheral vertigo.. However, a central vertigo is unlikely. MRI brain is reassuringly without intracranial pathology. P: Cont scheduled meclizine for now PT/OT as able Medication reconciliation and other management per primary Will follow Consultation Date/Type/Reason Admit Date/Time Jan 05, 2019 at 13:45 Type of Consult Neurology Reason for Consultation vertigo Requesting Provider: NENA EDWARDS NP Date/Time of Note DATE: 01/07/19 TIME: 13:59 24 HR Interval Summary Free Text/Dictation Awaiting pacemaker placement. Exam Vital Signs Vitals Vital Signs Date Temp Pulse Resp B/P (MAP) Pulse Ox O2 O2 Flow FiO2 Time Delivery Rate 01/07/19 60 12:03 01/07/19 97.6 22 137/67 96 Room Air 11:05 (90) 01/05/19 3.0 15:27 Intake and Output 01/06/19 01/06/19 01/07/19 1414:59 22:59 06:59 IntakeIntake Total 500 ml 400 ml BalanceBalance 500 ml 400 ml Exam PE: Gen Appearance: No Apparent Distress HEENT: Normocephalic Cardiovascular: Regular rate Lungs: Clear bilaterally Abdomen: Soft Extremities: Dry NE: The patient was alert and grossly oriented. Oriented to self, hospital, and most parts of situation. Language was normal. Fund of knowledge was normal. Pupils were equal and reactive to light. There was no afferent pupillary defect. Visual mills were normal. Funduscopic examination was limited. Extra-ocular movements were full. Ptosis was absent. There was no nystagmus. Facial sensation was normal. Face was symmetric with normal strength. Hearing was intact. Palate movements were normal. Neck strength was normal. There was normal tongue bulk and speed of movement. Tone was normal. Muscle bulk was diminished. I did not see fasciculations. Arms were mildly weak; legs were very weak and symmetric. Vibration sensation was normal. Temperature and pinprick sensation was normal. Rapid alternating movements were normal. There was dysmetria noted in the RUE. There was no intention tremor. Gait was deferred due to bedrest. Arm and leg reflexes were 2+ and symmetric. De Oliveira's sign was absent. Plantar responses were flexor. ROSALVA LIANG NP Jan 07, 2019 13:59 LUKAS YANEZ Jan 07, 2019 16:37
[2019-01-07] MEDS ORDERED: SOD CHLORIDE 0.9% 500 ML ONE (14:19)
[2019-01-07] MEDS ORDERED: BUPIVACAINE 0.5% (SDV) 30 ML INJ ONE (14:19)
[2019-01-07] MEDS ORDERED: MIDAZOLAM 1 MG/ML 2 ML INJ ONE ×2 (14:19→14:58)
[2019-01-07] MEDS ORDERED: FENTAnyl 50 MCG/ML VIAL ONE ×2 (14:19→14:59)
[2019-01-07] MEDS ORDERED: IODIXANOL LOCM 50 ML BTL ONE (14:19)
[2019-01-07] MEDS ORDERED: LIDOCAINE 1%/EPI (1:100,000) (MDV) 20 ML ONE (14:20)
[2019-01-07] MEDS ORDERED: CEFAZOLIN 1 GM/50 ML (PMX) 50 ML IVPB ONE (14:30)
[2019-01-07] MEDS ORDERED: CEFAZOLIN 2 GM/50 ML (PMX) 50 ML IVPB ONE (16:00)
[2019-01-07] MEDS ORDERED: CEFAZOLIN 1 GM/50 ML (PMX) 50 ML IVPB SCH ×2 (18:00)
--- NOTE | 2019-01-07 18:24 | PN ---
Date/Time of Note Date/Time of Note DATE: 01/07/19 TIME: 18:22 Assessment/Plan VTE Prophylaxis Risk score (from Ns)>0 risk: 3 SCD applied (from Ns): Yes SCD contraindicated: low risk/ambulating Pharmacological prophylaxis: NA/contraindicated Pharm contraindication: low risk/ambulating, surgical contra Lines/Catheters IV [facility] Saline Lock Urinary Cath still in place: No Assessment/Plan Hospital Course Assessment and plan 1. Recurrent syncope/presyncope. Stable, r/o arrhythmia; sp orthostatics/ carotids. MRI-notd. Differential: Sick sinus syndrome, BPPV. 2. Chronic hypertension 3. Chronic DJD 4. Chronic hypothyroidism 5. Chronic asthma 6. Left pulmonary nodule? Surveillance 7. History of ovarian and cancer 8. Recent UTI? Repeat UA pending. 3-day treatment empirically. 9. Sinus bradycardia/ SSS; sp Pacemaker. 10. Ftt.refused snf. Might be an option as she will be in a sling for 2 weeks. S: 01/04 states of having intermittent dizziness with spinning sensation nausea vomiting without any known aggravating or relieving factors. Happening weekly? Denies any susan chest pain palpitations focal deficits, susan loss of speech vision during these events. No tongue bite or incontinence. Feels as if the floor is moving toward her. Denies any recent change in medications. Drinks 5 glasses of water a day. Think she recently had a UTI. No symptoms of GI bleed. Occasionally has injuries. Lately she has been able to catch herself before injury. Lately she has been able to lie down to avoid injury. She lives with her disabled spouse. Hard of hearing is probably subacute. Denies any ear fullness/ discharge. 01/05 no syncope. Positive fatigue dizziness. Heart rate even down to 32 but was asymptomatic overnight. Pauses noted additionally 01/06: No events or syncope. No loss of speech or vision. No fever. Claims to have dysuria but culture appears unremarkable : Events noted. Status post pacemaker. Spoke with her and her spouse about the benefits of sniff. O: Vss; sr PE No pallor JVD Regular no m/r/g Clear Benign No edema Result Diagram: 01/04/19 0520 01/07/19 0541 Results 24hrs Laboratory Tests Test 01/07/19 05:41 Sodium Level 142 Potassium Level 3.7 Chloride Level 107 Carbon Dioxide Level 30 Anion Gap 5 Blood Urea Nitrogen 13 Creatinine 0.67 Est Glomerular Filtrat Rate mL/min Glucose Level 101 Calcium Level 9.0 Magnesium Level 2.1 Exam/Review of Systems Exam Vitals Vital Signs Date Temp Pulse Resp B/P (MAP) Pulse Ox O2 O2 Flow FiO2 Time Delivery Rate 01/07/19 98.0 65 22 143/63 96 Nasal 17:43 (89) Cannula 01/07/19 1.0 17:25 Intake and Output 01/06/19 01/06/19 01/07/19 1515:00 23:00 07:00 IntakeIntake Total 500 ml 400 ml BalanceBalance 500 ml 400 ml Results Results 24hrs Laboratory Tests Test 01/07/19 05:41 Sodium Level 142 Potassium Level 3.7 Chloride Level 107 Carbon Dioxide Level 30 Anion Gap 5 Blood Urea Nitrogen 13 Creatinine 0.67 Est Glomerular Filtrat Rate mL/min Glucose Level 101 Calcium Level 9.0 Magnesium Level 2.1 Medications Medication Current Medications IV Flush (NS 3 ml) 3 ml PER PROTOCOL IV ; Start 01/03/19 at 15:00 Ondansetron HCl (Zofran Inj) 4 mg Q6H PRN IV NAUSEA/VOMITING; Start 01/03/19 at 15:00 Acetaminophen (Tylenol Tab) 650 mg Q6H PRN PO .PAIN 1-3 OR TEMP; Start 01/03/19 at 15:00 Acetaminophen/ Hydrocodone Bitart ([place] (5/325)) 1 tab Q6H PRN PO .PAIN 4-6 Last administered on 01/05/19at 20:38; Admin Dose 1 TAB; Start 01/03/19 at 15:00 Enoxaparin Sodium (Lovenox) 30 mg DAILY SC Last administered on 01/06/19at 07:49; Admin Dose 30 MG; Start 01/04/19 at 09:00; Status Hold Levothyroxine Sodium (Synthroid) 75 mcg BEFORE BREAKFAST PO Last administered on 01/06/19at 07:42; Admin Dose 75 MCG; Start 01/04/19 at 07:00 Aspirin (Halfprin) 81 mg DAILY PO Last administered on 01/06/19at 07:42; Admin Dose 81 MG; Start 01/04/19 at 09:00 Atorvastatin Calcium (Lipitor) 20 mg HS PO Last administered on 01/06/19at 21:12; Admin Dose 20 MG; Start 01/04/19 at 21:00 Docusate Sodium (Colace) 100 mg BID PRN PO CONSTIPATION; Start 01/04/19 at 18:00 Phenazopyridine HCl (Pyridium) 200 mg TID PO Last administered on 01/06/19at 21:13; Admin Dose 200 MG; Start 01/05/19 at 21:00; Stop 01/07/19 at 23:00 Nitrofurantoin Macrocrystals (Macrobid) 100 mg BID PO Last administered on 01/06/19at 21:13; Admin Dose 100 MG; Start 01/05/19 at 14:30 Meclizine HCl (Antivert) 12.5 mg TID PO Last administered on 01/06/19at 21:12; Admin Dose 12.5 MG; Start 01/05/19 at 21:00 Cefazolin Sodium 50 ml @ 100 mls/hr Q8 IVPB ; Start 01/07/19 at 18:00; Stop at 06:29 RITA PARKER MD Jan 07, 2019 18:24
--- NOTE | 2019-01-07 19:37 | OPR ---
DATE OF OPERATION: REFERRING PHYSICIAN: Nelson Corbin MD Thank you Dr. Corbin for allowing me to participate in the care of your patient. INDICATION FOR THE PROCEDURE: Sick sinus syndrome, tachybrady syndrome and episodes of recurrent syn cope. The patient has symptomatic bradycardia and recurrent syncope. The patient requires a pacemaker impl ant. The risks and benefits were described to the patient in detail. The patient understood and wan madina the procedure be done. PROCEDURES: 1. Implantation of a dual-chamber pacemaker. 2. Implantation of right atrial lead. 3. Implantation of right ventricular lead. 4. Right atrial pacing recording. 5. Right ventricular pacing recording. 6. Catheter placed into the superior vena cava. 7. Contrast sonography of left subclavian vessel. 8. Contrast sonography of the superior vena cava. 9. Central line placement and removal. 10. Fluoroscopy and fluoroscopic use in order to guide needle placement to the vessel. 11. Conscious sedation for 1 hour. DESCRIPTION OF PROCEDURE: After informed consent was obtained by the patient, the patient was shonna t to the cardiac electrophysiology laboratory and catheterization laboratory as well, the patient's [facility] chest and neck region was prepped and draped in usual sterile fashion. Following this, the patie nt received 1% lidocaine at the left deltopectoral groove. Then following this, the patient then had a 1-inch incision made. Central lines were placed after contrast sonography was performed. No comp lications occurred. Following this, the patient then had placement of leads in the right atrium and right ventricle with no complications. IMPLANTED MATERIAL: 1. Dual chamber pacemaker, [employer], please see the implant sheet for details. Model number is [id number]. Serial number is [id number]. 2. The right atrial lead is a Tendril STS 2088TC - [address] [employer]. 3. Ventricular lead is [employer] Tendril STS 2088TC. 4. Right atrial P waves were 0.7 millivolts, impedance of 360 ohms, threshold of 0.75 volts at 0.4 m sec. Right ventricular R waves are 3.8 millivolts, impedance of 510 ohms, threshold of 0.5 volts at 0.4 msec . No complications occurred. IMPRESSION: Successful implantation of a dual-chamber pacemaker. Dictated By: COCO PEARSON MD LP/NTS Conf#: [id number] [facility]#: [id number] CC: NELSON CORBIN MD; MARCO ANTONIO DAVIS MD; RITA PARKER MD;*EndCC*
[2019-01-07] MEDS: ATORVASTATIN 20 MG TAB PO SCH (20:09)
[2019-01-07] MEDS: HYDROCODONE/APAP (5/325) TAB PO PRN (20:11)
[2019-01-08] VITALS (12 sets, daily range): BP systolic 127–150; BP diastolic 61–99; PULSE 57–75; RESP 17–22
[2019-01-08] MEDS: HYDROCODONE/APAP (5/325) TAB PO PRN ×2 (01:58→08:48)
[2019-01-08] MEDS: CEFAZOLIN 1 GM/50 ML (PMX) 50 ML IVPB SCH ×2 (06:22→13:49)
[2019-01-08] MEDS: LEVOTHYROXINE 75 MCG TAB PO SCH (06:50)
--- NOTE | 2019-01-08 07:22 | CONS ---
Assessment/Plan Assessment/Plan Hospital Course (Demo Recall) Syncope: Echo shows normal EF and valves. Some episodes are likely due to orthostatic hypotension but some while sitting are concerning. Tele shows some episodes of sinus bradycardia in the 30-40s and post PAC/PVC pauses up to 2.5 seconds concerning for sick sinus syndrome. Seen by EP who also agrees she needs a PPM. s/p [employer] PPM 01/07/19 PAC/PVCs: isolated and no symptoms. Normal EF. Hypothyroidism -ok for d/c from cardiac perspective but pt would like to stay one more day for rehab if possible. Defer to primary Consultation Date/Type/Reason Admit Date/Time Jan 05, 2019 at 13:45 Initial Consult Date 01/04/19 Type of Consult Cardiology Requesting Provider: NENA EDWARDS NP Date/Time of Note DATE: 01/08/19 TIME: 07:21 24 HR Interval Summary Free Text/Dictation s/p PPM. No complaints. Would like to stay another day Exam/Review of Systems Exam Vitals Vital Signs Date Temp Pulse Resp B/P (MAP) Pulse Ox O2 O2 Flow FiO2 Time Delivery Rate 01/08/19 97.6 57 22 142/76 96 Nasal 07:07 (98) Cannula 01/07/19 1.0 17:25 Intake and Output 01/07/19 01/07/19 01/08/19 1515:00 23:00 07:00 IntakeIntake Total 370 ml 450 ml BalanceBalance 370 ml 450 ml Constitutional: alert, oriented Psych: no complaints, nl mood/affect Neck: supple; No jvd Cardiovascular: regular rate and rhythm, other (PPM site c/d/i); No edema Gastrointestinal: soft, non-tender; No distended Neurological: nl mental status, nl speech Results Result Diagram: 01/08/19 0515 01/08/19 0515 Results 24hrs Laboratory Tests Test 01/08/19 05:15 White Blood Count 7.3 Red Blood Count 4.16 L Hemoglobin 13.4 Hematocrit 41.1 Mean Corpuscular Volume 98.8 Mean Corpuscular Hemoglobin 32.2 Mean Corpuscular Hemoglobin Concent 32.6 Red Cell Distribution Width 12.8 Platelet Count 128 L Mean Platelet Volume 11.8 H Immature Granulocytes % 0.400 Neutrophils % 60.3 Lymphocytes % 28.0 Monocytes % 7.9 Eosinophils % 2.9 Basophils % 0.5 Nucleated Red Blood Cells % 0.0 Immature Granulocytes # 0.030 Neutrophils # 4.4 Lymphocytes # 2.1 Monocytes # 0.6 Eosinophils # 0.2 Basophils # 0.0 Nucleated Red Blood Cells # 0.0 Sodium Level 141 Potassium Level 3.8 Chloride Level 104 Carbon Dioxide Level 31 Anion Gap 6 Blood Urea Nitrogen 13 Creatinine 0.72 Est Glomerular Filtrat Rate mL/min Glucose Level 93 Calcium Level 8.7 Phosphorus Level 4.0 Magnesium Level 2.1 Medications Medication Current Medications IV Flush (NS 3 ml) 3 ml PER PROTOCOL IV ; Start 01/03/19 at 15:00 Ondansetron HCl (Zofran Inj) 4 mg Q6H PRN IV NAUSEA/VOMITING; Start 01/03/19 at 15:00 Acetaminophen (Tylenol Tab) 650 mg Q6H PRN PO .PAIN 1-3 OR TEMP; Start 01/03/19 at 15:00 Acetaminophen/ Hydrocodone Bitart ([place] (5/325)) 1 tab Q6H PRN PO .PAIN 4-6 Last administered on 01/08/19 01:58; Admin Dose 1 TAB; Start 01/03/19 at 15:00 Enoxaparin Sodium (Lovenox) 30 mg DAILY SC Last administered on 01/06/19 07:49; Admin Dose 30 MG; Start 01/04/19 at 09:00; Status Hold Levothyroxine Sodium (Synthroid) 75 mcg BEFORE BREAKFAST PO Last administered on 01/06/19 07:42; Admin Dose 75 MCG; Start 01/04/19 at 07:00 Aspirin (Halfprin) 81 mg DAILY PO Last administered on 01/06/19 07:42; Admin Dose 81 MG; Start 01/04/19 at 09:00 Atorvastatin Calcium (Lipitor) 20 mg HS PO Last administered on 01/07/19 20:09; Admin Dose 20 MG; Start 01/04/19 at 21:00 Docusate Sodium (Colace) 100 mg BID PRN PO CONSTIPATION; Start 01/04/19 at 18:00 Nitrofurantoin Macrocrystals (Macrobid) 100 mg BID PO Last administered on 01/07/19 20:08; Admin Dose 100 MG; Start 01/05/19 at 14:30 Meclizine HCl (Antivert) 12.5 mg TID PO Last administered on 01/07/19at 20:09; Admin Dose 12.5 MG; Start 01/05/19 at 21:00 Cefazolin Sodium 50 ml @ 100 mls/hr Q8H IVPB Last administered on 01/08/19at 0 6:22; Admin Dose 100 MLS/HR; Start 01/08/19 at 05:30; Stop 01/08/19 at 13:59 NELSON CORBIN Jan 08, 2019 07:22
[2019-01-08] MEDS: MECLIZINE 12.5 MG TAB PO SCH ×3 (08:48→21:07)
[2019-01-08] MEDS: NITROFURANTOIN (SR) 100 MG CAP PO SCH ×2 (08:48→21:07)
[2019-01-08] MEDS: ASPIRIN (EC) 81 MG TAB PO SCH (08:48)
--- NOTE | 2019-01-08 13:31 | RADRPT ---
Vent Rate: 73 bpm RR Interval: 0 msec MA Interval: 180 msec QRS Duration: 86 msec QT Interval: 392 msec QTC Interval: 431 msec P-R-T [place]: 78 - 10 - 49 degrees Electronic atrial pacemaker Possible Anterior infarct , age undetermined Abnormal ECG Electronically Signed By: Camron Soto
--- NOTE | 2019-01-08 14:10 | CONS ---
Assessment/Plan Assessment/Plan Hospital Course 88 F c/ reported Hx of stroke, cancers, and other comorbidities...who presents for evaluation of recurrent vertigo..c/b fall w/ ? LOC...for which neurology is consulted.. The clinical picture most clinically consistent w/ peripheral vertigo.. However, a central vertigo is unlikely. MRI brain is reassuringly without intracranial pathology. P: Cont scheduled meclizine for now PT/OT as able Medication reconciliation and other management per primary Will follow Consultation Date/Type/Reason Admit Date/Time Jan 05, 2019 at 13:45 Type of Consult Neurology Reason for Consultation vertigo Requesting Provider: NENA EDWARDS NP Date/Time of Note DATE: 01/08/19 TIME: 14:10 24 HR Interval Summary Free Text/Dictation Continues telemetry monitoring. Pt states that she believes her UTI was caused by her . Refer to SW note (01/08) for details. Exam Vital Signs Vitals Vital Signs Date Temp Pulse Resp B/P (MAP) Pulse Ox O2 O2 Flow FiO2 Time Delivery Rate 01/08/19 97.0 61 22 150/99 96 Room Air 12:10 (116) 01/07/19 1.0 17:25 Intake and Output 01/07/19 01/07/19 01/08/19 1515:00 23:00 07:00 IntakeIntake Total 370 ml 450 ml BalanceBalance 370 ml 450 ml Exam PE: Gen Appearance: Anxious, visibly upset HEENT: Normocephalic Cardiovascular: Regular rate Lungs: Clear bilaterally Abdomen: Soft Extremities: Dry NE: The patient was alert and oriented. Oriented to self, month, hospital and situation. Language was normal. Fund of knowledge was normal. Pupils were equal and reactive to light. There was no afferent pupillary defect. Visual mills were normal. Funduscopic examination was limited. Extra-ocular movements were full. Ptosis was absent. There was no nystagmus. Facial sensation was normal. Face was symmetric with normal strength. Hearing was intact. Palate movements were normal. Neck strength was normal. There was normal tongue bulk and speed of movement. Tone was normal. Muscle bulk was diminished. I did not see fasciculations. Arms were mildly weak; legs were very weak and symmetric. Vibration sensation was normal. Temperature and pinprick sensation was normal. Rapid alternating movements were normal. There was no dysmetria noted. There was no intention tremor. Gait was deferred due to bedrest. Arm and leg reflexes were 2+ and symmetric. De Oliveira's sign was absent. Plantar responses were flexor. ROSALVA LIANG NP Jan 08, 2019 14:10
--- NOTE | 2019-01-08 14:29 | PN ---
Date/Time of Note Date/Time of Note DATE: 01/08/19 TIME: 14:27 Assessment/Plan VTE Prophylaxis Risk score (from Ns)>0 risk: 10 SCD applied (from Ns): Yes SCD contraindicated: low risk/ambulating Pharmacological prophylaxis: NA/contraindicated Pharm contraindication: surgical contra Lines/Catheters IV [facility]from [facility] Saline Lock Urinary Cath still in place: No Assessment/Plan Hospital Course Assessment and plan 1. Recurrent syncope/presyncope. Stable, r/o arrhythmia; sp orthostatics/ carotids. MRI-notd. Differential: Sick sinus syndrome, BPPV. 2. Chronic hypertension 3. Chronic DJD 4. Chronic hypothyroidism 5. Chronic asthma 6. Left pulmonary nodule? Surveillance 7. History of ovarian and cancer 8. Recent UTI? Repeat UA pending. 3-day treatment empirically. 01/08: Specimen appears containing, I will redraw 9. Sinus bradycardia/ SSS; sp Pacemaker. 10. Ftt.refused snf. Might be an option as she will be in a sling for 2 weeks. S: 01/04 states of having intermittent dizziness with spinning sensation nausea vomiting without any known aggravating or relieving factors. Happening weekly? Denies any susan chest pain palpitations focal deficits, susan loss of speech vision during these events. No tongue bite or incontinence. Feels as if the floor is moving toward her. Denies any recent change in medications. Drinks 5 glasses of water a day. Think she recently had a UTI. No symptoms of GI bleed. Occasionally has injuries. Lately she has been able to catch herself before in jury. Lately she has been able to lie down to avoid injury. She lives with her disabled spouse. Hard of hearing is probably subacute. Denies any ear fullness/ discharge. 01/05 no syncope. Positive fatigue dizziness. Heart rate even down to 32 but was asymptomatic overnight. Pauses noted additionally 01/06: No events or syncope. No loss of speech or vision. No fever. Claims to have dysuria but culture appears unremarkable : Events noted. Status post pacemaker. Spoke with her and her spouse about the benefits of sniff. 01/08: No events. Stable. O: Vss; sr PE No pallor JVD Regular no m/r/g Clear Benign No edema Disposition: snf soon. Pending repeat urine culture, to make 1st was a contaminated specimen Result Diagram: 01/08/19 0515 01/08/19 0515 Results 24hrs Laboratory Tests Test 01/08/19 05:15 White Blood Count 7.3 Red Blood Count 4.16 L Hemoglobin 13.4 Hematocrit 41.1 Mean Corpuscular Volume 98.8 Mean Corpuscular Hemoglobin 32.2 Mean Corpuscular Hemoglobin Concent 32.6 Red Cell Distribution Width 12.8 Platelet Count 128 L Mean Platelet Volume 11.8 H Immature Granulocytes % 0.400 Neutrophils % 60.3 Lymphocytes % 28.0 Monocytes % 7.9 Eosinophils % 2.9 Basophils % 0.5 Nucleated Red Blood Cells % 0.0 Immature Granulocytes # 0.030 Neutrophils # 4.4 Lymphocytes # 2.1 Monocytes # 0.6 Eosinophils # 0.2 Basophils # 0.0 Nucleated Red Blood Cells # 0.0 Sodium Level 141 Potassium Level 3.8 Chloride Level 104 Carbon Dioxide Level 31 Anion Gap 6 Blood Urea Nitrogen 13 Creatinine 0.72 Est Glomerular Filtrat Rate mL/min Glucose Level 93 Calcium Level 8.7 Phosphorus Level 4.0 Magnesium Level 2.1 Exam/Review of Systems Exam Vitals Vital Signs Date Temp Pulse Resp B/P (MAP) Pulse Ox O2 O2 Flow FiO2 Time Delivery Rate 01/08/19 97.0 61 22 150/99 96 Room Air 12:10 (116) 01/07/19 1.0 17:25 Intake and Output 01/07/19 01/07/19 01/08/19 1515:00 23:00 07:00 IntakeIntake Total 370 ml 450 ml BalanceBalance 370 ml 450 ml Results Results 24hrs Laboratory Tests Test 01/08/19 05:15 White Blood Count 7.3 Red Blood Count 4.16 L Hemoglobin 13.4 Hematocrit 41.1 Mean Corpuscular Volume 98.8 Mean Corpuscular Hemoglobin 32.2 Mean Corpuscular Hemoglobin Concent 32.6 Red Cell Distribution Width 12.8 Platelet Count 128 L Mean Platelet Volume 11.8 H Immature Granulocytes % 0.400 Neutrophils % 60.3 Lymphocytes % 28.0 Monocytes % 7.9 Eosinophils % 2.9 Basophils % 0.5 Nucleated Red Blood Cells % 0.0 Immature Granulocytes # 0.030 Neutrophils # 4.4 Lymphocytes # 2.1 Monocytes # 0.6 Eosinophils # 0.2 Basophils # 0.0 Nucleated Red Blood Cells # 0.0 Sodium Level 141 Potassium Level 3.8 Chloride Level 104 Carbon Dioxide Level 31 Anion Gap 6 Blood Urea Nitrogen 13 Creatinine 0.72 Est Glomerular Filtrat Rate mL/min Glucose Level 93 Calcium Level 8.7 Phosphorus Level 4.0 Magnesium Level 2.1 Medications Medication Current Medications IV Flush (NS 3 ml) 3 ml PER PROTOCOL IV ; Start 01/03/19 at 15:00 Ondansetron HCl (Zofran Inj) 4 mg Q6H PRN IV NAUSEA/VOMITING; Start 01/03/19 at 15:00 Acetaminophen (Tylenol Tab) 650 mg Q6H PRN PO .PAIN 1-3 OR TEMP; Start 01/03/19 at 15:00 Acetaminophen/ Hydrocodone Bitart ([place]iles (5/325)) 1 tab Q6H PRN PO .PAIN 4-6 Last administered on 01/08/19 08:48; Admin Dose 1 TAB; Start 01/03/19 at 15:00 Enoxaparin Sodium (Lovenox) 30 mg DAILY SC Last administered on 01/06/19at 07: 49; Admin Dose 30 MG; Start 01/04/19 at 09:00; Status Hold Aspirin (Halfprin) 81 mg DAILY PO Last administered on 01/08/19 08:48; Admin Dose 81 MG; Start 01/04/19 at 09:00 Atorvastatin Calcium (Lipitor) 20 mg HS PO Last administered on 01/07/19at 20:09; Admin Dose 20 MG; Start 01/04/19 at 21:00 Docusate Sodium (Colace) 100 mg BID PRN PO CONSTIPATION; Start 01/04/19 at 18:00 Nitrofurantoin Macrocrystals (Macrobid) 100 mg BID PO Last administered on 01/08/19 08:48; Admin Dose 100 MG; Start 01/05/19 at 14:30 Meclizine HCl (Antivert) 12.5 mg TID PO Last administered on 01/08/19 13:49; Admin Dose 12.5 MG; Start 01/05/19 at 21:00 Patient Own Medication 1 ea DAILY@0700 PO ; Start 01/09/19 at 07:00 RITA PARKER MD Jan 08, 2019 14:29
[2019-01-08] MEDS: ATORVASTATIN 20 MG TAB PO SCH (21:07)
[2019-01-09] VITALS (10 sets, daily range): BP systolic 120–162; BP diastolic 62–73; PULSE 65–85; RESP 17–22
[2019-01-09] MEDS ORDERED: SYNTHROID 75 MCG PO SCH (07:00)
[2019-01-09] MEDS: NITROFURANTOIN (SR) 100 MG CAP PO SCH (08:20)
[2019-01-09] MEDS: MECLIZINE 12.5 MG TAB PO SCH ×2 (08:21→13:48)
[2019-01-09] MEDS: ASPIRIN (EC) 81 MG TAB PO SCH (08:21)
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
--- NOTE | 2019-01-09 13:15 | PDOCDIS ---
Discharge Instructions CONDITION [id number] Patient Condition: [id number] Stable HOME CARE INSTRUCTIONS: [id number] Diet Instructions: [id number] ty No Sexual Activity [id number] Activity Restrictions [id number] dont elevate lt arm above Comment: shoulder level FOLLOW UP/APPOINTMENTS Follow-up Plan Placido Keen 1wk RITA PARKER MD Jan 09, 2019 13:14
--- NOTE | 2019-01-09 16:30 | DS ---
Date/Time of Note Date/Time of Note DATE: 01/09/19 TIME: 16:18 Discharge Summary Admission/Discharge Info Admit Date/Time Jan 05, 2019 at 13:45 Discharge Date/Time Patient Condition: Stable Consults Charly Espinosa Procedures MRI brain: IMPRESSION: 1. Diffuse smooth pachymeningeal thickening and marked enhancement which is frequently associated with spontaneous intracranial hypotension. Clinical correlation is necessary. The differential includes infectious, inflammatory, or neoplastic involvement of the dura. 2. Mild diffuse volume loss with mild to moderate chronic microvascular ischemic disease in the periventricular and deep white matter. 3. No abnormal leptomeningeal or intraparenchymal enhancement. Carotid ultrasound 1. Mild soft and calcific plaque without evidence for hemodynamically sign ificant stenosis or occlusion by NASCET criteria. 2. Antegrade flow seen within the vertebral arteries bilaterally. R ankle, tibia and fibula FINDINGS: Right ankle: Mild osteopenia. No displaced fracture. Hypertrophic change at the medial and lateral malleolus likely from prior injury. Small dorsal navicular cuneiform marginal osteophyte formation. Small to moderate calcaneal spur at the origin of the plantar fascia. Mild soft tissue fullness overlying the region of the distal Achilles tendon. Smooth thin periosteal reaction in the distal tibia. Marked soft tissue swelling in the right ankle. Right tibia and fibula: Mild osteopenia. No displaced fracture. Tricompartmental marginal osteophyte formation. Soft tissue swelling in the leg. Right ankle series IMPRESSION: 1. Mild osteopenia. 2. No displaced fracture. 3. Marked soft tissue swelling in the right leg and ankle. 4. Smooth periosteal reaction in the distal tibia likely related to chronic venous insufficiency. 5. Degenerative changes as above. Pelvic x-ray No acute process Ultrasound venous bilateral lower extremity No acute process Left shoulder x-ray IMPRESSION: 1. Mild osteopenia. 2. No displaced fracture. 3. Moderate acromioclavicular arthropathy. 4. 1.2 cm left upper lobe nodule, not definitively significantly changed from prior exams but not fully evaluated. Recommend follow-up CT chest for further evaluation. Right ankle series MPRESSION: 1. Mild osteopenia. 2. No displaced fracture. 3. Marked soft tissue swelling in the right leg and ankle. 4. Smooth periosteal reaction in the distal tibia likely related to chronic venous insufficiency. 5. Degenerative changes as above. Hx of Present Illness 88-year-old female admitted with concern of syncope. Hospital Course Hospitalist coverage/Hospital course states of having intermittent dizziness with spinning sensation nausea vomiting without any known aggravating or relieving factors. Happening weekly? Denies any susan chest pain palpitations focal deficits, susan loss of speech vision during these events. No tongue bite or incontinence. Feels as if the floor is moving toward her. Denies any recent change in medications. Drinks 5 glasses of water a day. Think she recently had a UTI. No symptoms of GI bleed. Occasionally has injuries. Lately she has been able to catch herself before injury. Lately she has been able to lie down to avoid injury. She lives with her disabled spouse. Hard of hearing is probably subacute. Denies any ear fullness/ discharge. Seen by cardiology and neurology. MRI done. No acute process. Neurology recommends meclizine as needed. EKG and orthostatics concerning for sick sinus syndrome or symptomatic bradycardia. Patient was seen additionally by EP. Patient was deemed a candidate for pacemaker. Patient underwent pacemaker placement. Requested to follow-up with cardiology 2 weeks. Due to pain/ debility. I recommended sniff. I think she agrees at this point in time. Probably needs permanent placement due to she and her having debility. This time they refused long-term care. Assessment and plan 1. Recurrent syncope/presyncope. Stable, r/o arrhythmia; sp orthostatics/ carotids. Differential: Sick sinus syndrome, BPPV. 2. Chronic hypertension 3. Chronic DJD 4. Chronic hypothyroidism 5. Chronic asthma 6. Left pulmonary nodule? Surveillance/ expectant management. May visit pulmonary as an outpatient. 7. History of ovarian and cancer? 8. Recent UTI? Repeat UA pending. 3-day treatment empirically finished. 01/08: Specimen appears containing, redraw-no growth. 9. Sinus bradycardia/ SSS; sp Pacemaker. 10. Ftt.initially refused snf. Presently agrees to [facility].. S: 01/04 states of having intermittent dizziness with spinning sensation nausea vomiting without any known aggravating or relieving factors. Happening weekly? Denies any susan chest pain palpitations focal deficits, susan loss of speech vision during these events. No tongue bite or incontinence. Feels as if the floor is moving toward her. Denies any recent change in medications. Drinks 5 glasses of water a day. Think she recently had a UTI. No symptoms of GI bleed. Occasionally has injuries. Lately she has been able to catch herself before injury. Lately she has been able to lie down to avoid injury. She lives with her disabled spouse. Hard of hearing is probably subacute. Denies any ear fullness/ discharge. 01/05 no syncope. Positive fatigue dizziness. Heart rate even down to 32 but was asymptomatic overnight. Pauses noted additionally 01/06: No events or syncope. No loss of speech or vision. No fever. Claims to have dysuria but culture appears unremarkable /: Events noted. Status post pacemaker. Spoke with her and her spouse about the benefits of sniff. 01/08: No events. Stable. 01/09: No events Home Meds Reported Medications Levothyroxine Sodium* (Levothyroxine Sodium*) 75 Mcg Tablet, 75 MCG PO BEFORE BREAKFAST, #30 TAB 03/23/17 Discontinued Scripts Albuterol Sulfate* (Proair HFA*) 8.5 Gm Hfa.aer.ad, 2 PUFF INH Q6H PRN for COUGH, #1 INHALER Prov:NICCI LARA MD 03/23/17 Ondansetron Hcl* (Zofran*) 4 Mg Tablet, 4 MG PO Q8H PRN for NAUSEA AND/OR VOMITING, #16 TAB Prov:NICCI LARA MD 03/23/17 Follow-up Plan Placido Keen 1wk Primary Care Provider Not On Staff Doctor Time spent on discharge: > 30 minutes Pending Labs Microbiology Date/Time Source Procedure Growth Status 01/08/19 18:25 Straight Cath Urine Urine Culture - Preliminary NO Resulted GROWTH AFTER 24 HOURS RITA PARKER MD Jan 09, 2019 16:29
== END 2019-01-09 17:42 | DRG 243 ==
LOC: E/R 12:42 → UNDOADMOB 14:13 → 6WM 14:13 → OBSVTOIN 01-05 13:45
PROVIDERS: ADMIT Internal Medicine; ATTEND Internal Medicine
PROC: 02HK3JZ Insertion of Pacemaker Lead into Right Ventricle, Percutaneous Approach (ICD-10-PCS; 2019-01-07)
PROC: 02H63JZ Insertion of Pacemaker Lead into Right Atrium, Percutaneous Approach (ICD-10-PCS; 2019-01-07)
PROC: 0JH606Z Insertion of Pacemaker, Dual Chamber into Chest Subcutaneous Tissue and Fascia, Open Approach (ICD-10-PCS; principal; 2019-01-07 14:30)
DX: I49.5 Sick sinus syndrome (principal); N39.0 Urinary tract infection, site not specified; E03.9 Hypothyroidism, unspecified; M19.90 Unspecified osteoarthritis, unspecified site; R62.7 Adult failure to thrive; Z85.51 Personal history of malignant neoplasm of bladder; Z85.43 Personal history of malignant neoplasm of ovary
CPT/HCPCS: 36415; 70200; 70450; 70553; 71045; 72170; 73030; 73590; 80048; 80053; 80061; 80307; 81003; 82550; 82553; 82607; 82728; 82746; 82962; 83735; 83880; 84100; 84439; 84443; 84484; 85025; 85610; 85730; 87086; 93005; 93306; 93880; 93970; 97110; 97116; 97162; 97530; G0378; C1785; C1898; J0690; J1650; J2250; J3010; J7040; Q9967

== ENCOUNTER 2019-04-05 10:21 | Emergency (ER) | payer MEDICARE, BC ==
[~2019-04-05] VITALS: Ht 167.6 cm; Wt 59.8 kg
[~2019-04-05 10:21] MED LIST changes: -ALBU8.5H8 INH; -ONDA4TAB8 PO
[2019-04-05 10:27] VITALS: BP 132/67; PULSE 66; RESP 18; Ht 167.6 cm; Wt 59.8 kg
[2019-04-05] MEDS ORDERED: PHENAZOPYRIDINE 100 MG TAB PO ONE (11:00)
[2019-04-05] MEDS ORDERED: CEFTRIAXONE 1 GM/50 ML (PMX) 50 ML IVPB ONE (11:30)
[2019-04-05] MEDS ORDERED: PHEN-537 PO (11:55)
--- NOTE | 2019-04-05 12:34 | ERD ---
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 HPI This is a very pleasant 88-year-old female. The patient presents to the emergency department as she states she was recently diagnosed with a urinary tract infection and had blood work obtained from her primary care physician on Friday, 6 days prior to arrival. She received a telephone call from her primary care physician that the urinalysis was positive for urinary tract infection. Her primary care physician called in a prescription of antibiotics but the patient stated she was unable to get these filled given that its holiday Friday. She states she is experiencing severe frequency urgency and dysuria. She has not taken any analgesic medication. She said no fevers or shaking or chills. Patient denies hematuria ROS All systems reviewed and are negative except as per history of present illness. Medications Home Meds Active Scripts Phenazopyridine Hcl* (Pyridium*) 100 Mg Tab, 100 MG PO TID PRN for URINARY PAIN, #8 TAB Prov:VIKKI ORDONEZ MD 04/05/19 Reported Medications Levothyroxine Sodium* (Levothyroxine Sodium*) 75 Mcg Tablet, 75 MCG PO BEFORE BREAKFAST, #30 TAB 03/23/17 Allergies Allergies: Coded Allergies: prednisone (Verified Allergy, Unknown, 04/05/19) Uncoded Allergies: FLU VACCINE (Allergy, Unknown, 01/04/15) TAPE (Allergy, Unknown, 01/04/15) PMhx/Soc History of Surgery: Yes (ovaries removal ) Anesthesia Reaction: No Hx Neurological Disorder: Yes (stroke ) Hx Respiratory Disorders: No Hx Cardiac Disorders: Yes (palpitations ) Hx Psychiatric Problems: No Hx Miscellaneous Medical Probl: Yes (CVA, hypothyroidism) Hx Alcohol Use: No Hx Substance Use: No Hx Tobacco Use: No Smoking Status: Never smoker Physical Exam Vitals Vital Signs Date Temp Pulse Resp B/P (MAP) Pulse Ox O2 O2 Flow FiO2 Time Delivery Rate 04/05/19 98.8 66 18 132/67 95 10:27 (88) Physical Exam Constitutional:Well-developed. Well-nourished. HEENT:Normocephalic. Atraumatic.Pupils were equal round reactive to light. Respiratory: Not using accessory muscles of respiration.Lungs were clear to auscultation bilaterally. No rhonchi. No rales. No wheezing. Cardiovascular: Regular rate regular rhythm.No murmurs. No rubs were appreciated.S1, S2 normal. Distal pulses are palpable 2+ bilaterally. GI: Abdomen was soft. Nontender. Non Distended. No pulsatile abdominal masses or bruits. No rebound. No guarding. Bowel sounds were present and normal. NEURO: Patient was alert, awake, orientated x3.No facial droop. Gait observed and normal with no ataxia and patient ambulates with a walker.Speech had regular rate and rhythm. No focal neurological deficits.and Results 24 hrs Laboratory Tests Test 04/05/19 11:00 Urine Color YELLOW Urine Clarity CLOUDY Urine pH 7.0 Urine Specific [place] 1.011 Urine Ketones NEGATIVE mg/dL Urine Nitrite NEGATIVE mg/dL Urine Bilirubin NEGATIVE mg/dL Urine Urobilinogen NEGATIVE mg/dL Urine Leukocyte Esterase 3+ Jeannie/ul Urine Microscopic RBC 3 /HPF Urine Microscopic WBC 113 /HPF Urine Squamous Epithelial Cells FEW /HPF Urine Bacteria FEW /HPF Urine Yeast (Budding) MODERATE /HPF Urine Hemoglobin 1+ mg/dL Urine Glucose NEGATIVE mg/dL Urine Total Protein NEGATIVE mg/dl Current Medications Medications Dose Sig/Eulogio Start Time Status Last (Trade) Ordered Route PRN Stop Time Admin Dose Reason Admin 100 mg ONCE ONCE 04/05/19 DC 04/05/19 Phenazopyridi PO 11:00 11:11 ne HCl 04/05/19 11:01 (Pyridium) Ceftriaxone 50 ml @ ONCE ONCE 04/05/19 DC 04/05/19 Sodium 100 mls/hr IVPB 11:30 11:43 04/05/19 11:59 Procedures/MDM This is a very pleasant 88-year-old female that presented to the emergency department urinary tract infection. I did obtain a urinalysis that was positive for pyuria. I also sent for urine culture. The patient received a dose of IV ceftriaxone in the emergency department. She was also given Pyridium for her symptoms. I do not feel is necessary to obtain an ancillary laboratory work as the patient had this done by her primary care physician. She felt comfortable being discharged home and states she will be able to fill her prescription tomorrow at [facility] for her antibiotics to continue for the urinary tract infection. The patient was discharged home in fair condition. They were instructed to return to the emergency department at any time if there was any worsening of their condition. The patient stated they would follow up with their PCP in the next 24-48 hours to initiate a suitable medication regimen under the care of their PCP as well as to allow their PCP to monitor any drug reactions. The patient was discharged home with prescriptions after they gave informed consent to the new medication. They were also fully informed by myself on the adverse effects and adverse drug interactions in order to provide adequate safeguards to prevent possible adverse reactions to medications. Departure Diagnosis: Primary Impression: Urinary tract infection Urinary tract infection type: acute cystitis Hematuria presence: without hematuria Qualified Codes: N30.00 - Acute cystitis without hematuria Condition: Fair Patient Instructions: Urinary Tract Infections in Women VIKKI ORDONEZ MD April 05, 2019 12:34
== END 2019-04-05 12:37 | disposition home or self-care (01) ==
LOC: E/R 10:21
DX: N30.00 Acute cystitis without hematuria (principal); E03.9 Hypothyroidism, unspecified; Z86.73 Personal history of transient ischemic attack (TIA), and cerebral infarction without residual deficits
CPT/HCPCS: 81001; 87086; 96374; 99284; J0696